=== PATIENT | female | born 1945 | race Caucasian/White ===

== ENCOUNTER → 2017-02-11 | Outpatient (CLI) | payer BC ==
[~2017-02-11] MED LIST: ESTCR PV; GLC500 PO; LOVA10TA2 PO; MULT-506 PO; [UNRECOGNIZED DRUG - OTHER] TD
--- NOTE | 2017-02-11 12:46 | MAMMOGRAPHY REPORT ---
BILATERAL DIGITAL SCREENING MAMMOGRAM WITH CAD: 02/11/2017 CLINICAL HISTORY: Routine screening. TECHNIQUE: Bilateral CC and MLO views were obtained. The repeat right CC view was obtained with the nipple in profile. Current study was also evaluated with a Computer Aided Detection (CAD) system. COMPARISON: Comparison is made to exams dated: 02/02/2016 mammogram, 01/26/2014 mammogram, 01/31/2015 m ammogram, 01/20/2013 mammogram, 01/20/2012 mammogram, and 01/16/2011 mammogram - [facility] enter. BREAST COMPOSITION: There are scattered areas of fibroglandular density in both breasts. FINDINGS: There is a stable circumscribed round 5 mm mass in the lower outer right breast. Stable in tramammary lymph nodes near each axillary tail. There are scattered round microcalcifications and mi ld vascular calcification in the breasts. No new suspicious mass, architectural distortion or cluste r of microcalcifications is seen. IMPRESSION: ACR BI-RADS CATEGORY 1: NEGATIVE There is no mammographic evidence of malignancy. A 1 year screening mammogram is recommended. The pa tient will receive written notification of the results. Approximately 10% of breast cancers are not detected with mammography. A negative mammographic report should not delay biopsy if a clinically suggestive mass is present. Monet Sabillon M.D. ay/:02/11/2017 08:09:55 Facing Baster: Bianca SHEN(Daphne)(Harriett), [facility] letter sent: Normal 1/2 BI-RADS Code: ACR BI-RADS Category 1: Negative
== END | disposition home or self-care (01) ==
LOC: C.MAMM 07:37
PROVIDERS: ATTEND Obstetrics & Gynecology
DX: Z12.31 Encounter for screening mammogram for malignant neoplasm of breast (principal)

== ENCOUNTER → 2017-06-06 | Outpatient (CLI) | payer BC | END | disposition home or self-care (01) | LOC: C.PAPS 11:58 | PROVIDERS: ATTEND Obstetrics & Gynecology | DX: Z12.4 Encounter for screening for malignant neoplasm of cervix (principal); Z78.0 Asymptomatic menopausal state ==

== ENCOUNTER 2020-02-17 08:54 | Inpatient (IN) ==
[2020-02-11 11:43] LABS: Basophils # (auto) 0.06 K/uL (0-0.2); Basophils % (auto) 0.9 %; Eosinophils # (auto) 0.22 K/uL (0-0.5); Eosinophils % (auto) 3.2 %; Hematocrit (blood only) 42.6 % (37-47); Hemoglobin 14.6 g/dL (12.0-16.0); Immature Granulocytes # (auto) 0.01 K/uL (0.00-0.02); Immature Granulocytes % (auto) 0.1 %; Lymphocytes # (auto) 2.05 K/uL (1.2-3.4); Lymphocytes % (auto) 30.1 %; Mean Corpuscular Hemoglobin 32.2 pg (25-34); Mean Corpuscular Hgb Conc 34.3 g/dL (32-36); Mean Corpuscular Volume 93.8 fL (80-100); Mean Platelet Volume 9.3 fL (7.4-10.4); Monocytes # (auto) 0.51 K/uL (0.11-0.59); Monocytes % (auto) 7.5 %; Neutrophils # (auto) 3.97 K/uL (1.4-6.5); Neutrophils % (auto) 58.2 %; Platelet Count 273 K/uL (130-400); RDW Coefficient of Variation 12.8 % (11.5-14.5); RDW Standard Deviation 43.9 fL (36.4-46.3); Red Blood Count 4.54 M/uL (4.2-5.4); White Blood Count 6.82 K/uL (4.8-10.8)
[2020-02-11 11:51] LABS: Partial Thromboplastin Time 28.8 Seconds (21.0-31.0); Prothrombin Time 10.1 Seconds (9.0-12.0)
[2020-02-11 12:04] LABS: BUN Creatinine Ratio 24.7 (10-20); Blood Urea Nitrogen 20 mg/dl (7-18); Calcium 9.2 mg/dl (8.5-10.1); Carbon Dioxide 24 mmol/L (21-32); Chloride 108 mmol/L (98-107); Est GFR (African American) 84.1; Est GFR (Non-African American) 72.6; Glucose 100 mg/dl (70-99); Potassium 4.1 mmol/L (3.5-5.1); Sodium 139 mmol/L (136-145)
[2020-02-11 12:31] LABS: Estimated Average Glucose 108 mg/dl; Hemoglobin A1C 5.4 % (4.5-5.6)
[2020-02-11 14:37] LABS: Appearance Urine Clear (Clear); Bacteria Urine Automated Negative (Negative); Bilirubin Urine Negative (Negative); Blood Urine Negative (Negative); Color Urine Yellow; Epithelial Cell Urine Auto >30 /lpf (0-5); Glucose Urine UA Negative (Negative); Ketones Urine Negative (Negative); Leukocyte Esterase Urine Trace (Negative); Nitrite Urine Negative (Negative); Protein Urine Negative (Negative); Specific Gravity Urine 1.015 (1.000-1.030); Urobilinogen Urine Negative (Negative); pH Urine 5.5 (4.5-7.5)
--- NOTE | 2020-02-14 13:06 | History & Physical Report ---
Date of Service February 14, 2020 Assessment & Plan (1) Primary osteoarthritis, left shoulder: Treatment options discussed. She has failed conservative measures as above. Risks, benefits and alternatives to surgery including but not limited to infection, DVT, pain, stiffness, need for revision surgery, damage to blood vessels, damage to nerves, PE, , were discussed with the patient and they wish to proceed. Plan will be for left total shoulder arthroplasty. Will plan on resuming her daily aspirin post operatively. Will plan on HHPT upon discharge from the hospital. Current COVID status is unknown, preoperative COVID testing results are currently pending. History of Present Illness Chief Complaint: Left shoulder pain Primary Care Provider: Chelsey Camacho PA-C Patient is a 74 year old female with PMHx significant for HTN and high cholesterol who has long standing history of left shoulder pain. Pain is affecting her abilities to carry out her normal daily activities. She has failed conservative therapy including cortisone injections and antiinflammatories. She would like to proceed with left shoulder replacement. Patient denies headaches, sweats, fevers, chills, double vision, blurred vision, cough, sore throat, dysphagia, chest pain, sob, wheezing, n/v/d/c, numbness, tingling, fatigue, urinary symptoms, mood disorders. ROS positive for left shoulder pain and stiffness. Allergies Allergy/AdvReac Type Severity Reaction Status Date / Time Penicillins Allergy Intermediate HIVES Verified 02/09/20 14:43 pravastatin Allergy Mild LEG PAIN Verified 02/09/20 14:43 simvastatin Allergy Mild LEG PAIN Verified 02/09/20 14:43 atorvastatin AdvReac Mild LEG PAIN Verified 02/09/20 14:43 capsaicin AdvReac Mild GI SYMPTOMS Verified 02/09/20 14:43 diclofenac AdvReac Mild GI SYMPTOMS Verified 02/09/20 14:43 Diclopak AdvReac Mild GI SYMPTOMS Verified 03/04/13 11:16 Home Medications Home Medications Medication Instructions Recorded Confirmed Type aspirin 81 mg tablet,delayed 81 mg PO QAM tab 06/16/19 02/09/20 History release estradiol 10 mcg vaginal tablet 10 mcg PV .twice weekly #24 tab 09/10/19 02/09/20 Rx lisinopril 5 mg tablet 5 mg PO HS 09/10/19 02/09/20 History B-complex with vitamin C [Super B 1 tab PO QAM 11/29/19 02/09/20 History Complex-Vitamin C] cholecalciferol (vitamin D3) 25 mcg PO QAM 11/29/19 02/09/20 History [Vitamin D3] diphenhydramine HCl [Benadryl] 50 mg PO HS PRN 11/29/19 02/09/20 History famotidine 40 mg PO QPM 11/29/19 02/09/20 History flaxseed oil 1,000 mg PO QAM 11/29/19 02/09/20 History fluticasone furoate [Flonase 1 spray INTRANASAL DAILY PRN 11/29/19 02/09/20 History Sensimist] naproxen sodium 220 mg PO BID 11/29/19 02/09/20 History Past Med/Surg History Social History Preferred Language: Faroese Communication Ability: Effective Account Information Clerk Required: No Beliefs That Will Affect Care: None Current Living Situation: Alone Feels Safe at Home: Yes Smoking Status: Never smoker Second Hand Exposure: Yes ( A CHILD) ; Hx Alcohol Use: Yes Alcohol type: wine and hard liquor Hx Substance Use: No Review of Systems All systems reviewed & are unremarkable except as noted in HPI & below Physical Exam Constitutional: well developed and well nourished; no acute distress Eyes: PERRL, conjunctivae normal, anicteric sclerae ENMT: external ear and nose normal, oropharynx normal Neck: trachea midline, no thyromegaly Respiratory: normal respiratory effort, lungs clear to auscultation Cardiovascular: RRR, no murmur, no edema Musculoskeletal: Left shoulder: Active forward flexion 0 to 90 degrees abduction 0 to 70 degrees external rotation is to neutral Skin: no rashes, warm and dry Neurologic: patellar DTR's 2+ bilat, sensation intact Psychiatric: A+Ox3, euthymic affect Results & Data Diagnostic Findings Left shoulder radiographs: X-RAY Shoulder 2 Or More Views LT [id number] in the glenohumeral joint. Fairly sizable inferior humeral head osteophyte mild posterior wear of the glenoid
--- NOTE | 2020-02-14 14:18 | Anesthesiology Consultation ---
Date of Service February 14, 2020 Assessment & Plan (1) Encounter for pre-operative examination: COVID Status: As of 02/08 nurse assessment, patient denies travel to endemic area, known exposure/sick contacts, symptoms, or testing for coronavirus. Chart Review Chart Review: Acceptable Risk for Surgery (pending surgeon-ordered PCP clearance 02/15) and Patient NOT seen in Pre Admission Testing History Surgery Operation Date: 02/17/20 08:45 Proposed Procedures p Left Total Shoulder Arthroplasty - Jimmie Crow MD Height/Weight Height: 5 ft 1 in Weight: 87.997 kg Allergies Allergy/AdvReac Type Severity Reaction Status Date / Time Penicillins Allergy Intermediate HIVES Verified 02/09/20 14:43 pravastatin Allergy Mild LEG PAIN Verified 02/09/20 14:43 simvastatin Allergy Mild LEG PAIN Verified 02/09/20 14:43 atorvastatin AdvReac Mild LEG PAIN Verified 02/09/20 14:43 capsaicin AdvReac Mild GI SYMPTOMS Verified 02/09/20 14:43 diclofenac AdvReac Mild GI SYMPTOMS Verified 02/09/20 14:43 Diclopak AdvReac Mild GI SYMPTOMS Verified 03/04/13 11:16 Medications Home Medications Medication Instructions Recorded Confirmed Last Taken aspirin 81 mg tablet,delayed 81 mg PO QAM tab 06/16/19 02/09/20 Unknown release estradiol 10 mcg vaginal tablet 10 mcg PV .twice weekly #24 tab 09/10/19 0 Unknown lisinopril 5 mg tablet 5 mg PO HS 09/10/19 02/09/20 Unknown B-complex with vitamin C [Super B 1 tab PO QAM 11/29/19 02/09/20 Unknown Complex-Vitamin C] cholecalciferol (vitamin D3) 25 mcg PO QAM 11/29/19 02/09/20 Unknown [Vitamin D3] diphenhydramine HCl [Benadryl] 50 mg PO HS PRN 11/29/19 02/09/20 Unknown famotidine 40 mg PO QPM 11/29/19 02/09/20 Unknown flaxseed oil 1,000 mg PO QAM 11/29/19 02/09/20 Unknown fluticasone furoate [Flonase 1 spray INTRANASAL DAILY PRN 11/29/19 02/09/20 Unknown Sensimist] naproxen sodium 220 mg PO BID 11/29/19 02/09/20 Unknown Past Medical History Medical History GERD (gastroesophageal reflux disease) "SILENT" Hyperlipidemia "CONTROLLED" Hypertension Osteoarthritis Prediabetes Past Family History Family History Sister Family history of diabetes mellitus Past Surgical History Surgical History History of bilateral tubal ligation History of section X 1 History of colonoscopy History of dilatation and curettage History of esophagogastroduodenoscopy (EGD) History of tonsillectomy and adenoidectomy History of tooth extraction Macular hole LEFT EYE INJECTION Nausea and vomiting after administration of anesthetic agent Rectocele REPAIRED Social History Smoking Status: Never smoker Do You Dip or Chew Tobacco: No Hx Alcohol Use: Yes Alcohol type: wine and hard liquor alcohol intake frequency: a few times a week Hx Substance Use: No substance use type: does not use Testing Laboratory Results 02/11/20 10:59 02/11/20 10:59 PT 10.1 Seconds (9.0-12.0) 02/11/20 10:59 INR 1.0 (0.9-1.1) 02/11/20 10:59 APTT 28.8 Seconds (21.0-31.0) 02/11/20 10:59 Hemoglobin A1c 5.4 % (4.5-5.6) 02/11/20 10:59 Urine Color Yellow 02/11/20 12:00 Urine Appearance Clear (Clear) 02/11/20 12:00 Urine pH 5.5 (4.5-7.5) 02/11/20 12:00 Ur Specific [place] 1.015 (1.000-1.030) 02/11/20 12:00 Urine Protein Negative (Negative) 02/11/20 12:00 Urine Glucose (UA) Negative (Negative) 02/11/20 12:00 Urine Ketones Negative (Negative) 02/11/20 12:00 Urine Nitrite Negative (Negative) 02/11/20 12:00 Ur Leukocyte Esterase Trace (Negative) H 02/11/20 12:00 Urine WBC (Auto) 1-5 /hpf (0-5) 02/11/20 12:00 Urine RBC (Auto) 5-10 /hpf (0-4) H 02/11/20 12:00 U Hyaline Cast (Auto) 1-5 /lpf (0-5) 02/11/20 12:00 U Epithel Cells (Auto) >30 /lpf (0-5) H 02/11/20 12:00 Urine Bacteria (Auto) Negative (Negative) 02/11/20 12:00 Electrocardiogram Date: 02/11/20 Findings: + NSR @ (96bpm) Cannot r/o anterior infarct, age undetermined. No significant change from EKG from 08/18/97. Chest X-Ray Date: 02/11/20 Findings: + NAD
[~2020-02-17 08:54] MED LIST changes: +ACETAMINOPHEN 500 MG TAB PO SCH; +CLINDAMYCIN 600 MG/54 ML BAG IV SCH; +CeleBREX 200 MG CAP PO SCH; -ESTCR PV; +FAMOTIDINE 20 MG TAB PO SCH; +GABAPENTIN 300 MG CAP PO SCH; -GLC500 PO; -LOVA10TA2 PO; +LR 15ML/HR IV SCH; +METOCLOPRAMIDE HCL 10 MG TABLET PO SCH; -MULT-506 PO; +TRANEXAMIC ACID 1,000 MG **IV Intra-op IV SCH; +TRANEXAMIC ACID 1,000 MG **IV Pre-op IV SCH; -[UNRECOGNIZED DRUG - OTHER] TD; +dexAMETHasone 4 MG TAB PO SCH
--- NOTE | 2020-02-17 09:34 | History & Physical Bridge Note ---
Date of Service February 17, 2020 History & Physical Bridge Note I have examined the patient, reviewed the History & Physical and in the interval since the performance of the History & Physical I have noted the following changes of clinical significance: no changes noted
[2020-02-17] MEDS ORDERED: ROPIVACAINE 0.5% 5 MG/ML 30 ML VIAL ONE (09:36)
[2020-02-17] MEDS ORDERED: dexAMETHasone 4 MG TAB PO ONE (10:04)
[2020-02-17] MEDS ORDERED: CeleBREX 200 MG CAP ONE (10:04)
[2020-02-17] MEDS ORDERED: METOCLOPRAMIDE HCL 10 MG TABLET ONE (10:05)
[2020-02-17] MEDS ORDERED: ACETAMINOPHEN 500 MG TAB ONE (10:05)
[2020-02-17] MEDS ORDERED: TRANEXAMIC ACID / 0.7% NACL 1000MG/100ML BAG IV ONE (10:05)
[2020-02-17] MEDS ORDERED: GABAPENTIN 300 MG CAP ONE (10:05)
[2020-02-17] MEDS ORDERED: FAMOTIDINE 20 MG TAB ONE (10:05)
[2020-02-17] MEDS ORDERED: CLINDAMYCIN 600 MG/54 ML D5W IV ONE (10:06)
[2020-02-17] MEDS ORDERED: ROPIVACAINE 0.5% HCL/PF 150 MG, BUPIVACAINE 0.5% MPF 30 ML, EPINEPHrine 30MG/30ML (OR U... INFIL SCH (10:15)
[2020-02-17] MEDS ORDERED: VANCOMYCIN HCL 1000MG/20ML VIAL ONE (10:17)
[2020-02-17] MEDS ORDERED: BACITRACIN INJ 50,000 UNIT VIAL ONE (10:18)
[2020-02-17] MEDS ORDERED: THROMBIN FOR SOLN 20000 UNIT KIT ONE (10:18)
[2020-02-17] MEDS ORDERED: SCOPOLAMINE 1.5 MG TDSY TD ONE ×2 (10:30→10:32)
[2020-02-17] MEDS ORDERED: ATROPINE SULFATE 0.1 MG/ML 10ML SYR IV PRN (10:33)
[2020-02-17] MEDS ORDERED: fentaNYL citrate 100 MCG/2 ML VIAL IV PRN (10:33)
[2020-02-17] MEDS ORDERED: ePHEDrine sulfate 50 MG/ML AMP IV PRN (10:33)
[2020-02-17] MEDS ORDERED: ONDANSETRON INJ 2 MG/ML 2 ML VIAL IV PRN ×2 (10:33→15:31)
[2020-02-17] MEDS ORDERED: PROPOFOL IV EMULSION 10 MG/ML 20 ML VIAL IV ONE (11:00)
[2020-02-17] MEDS ORDERED: MIDAZOLAM HCL 1 MG/ML 2ML VIAL ONE (11:00)
[2020-02-17] MEDS ORDERED: LIDOCAINE HCL 2% 2 ML VIAL/AMP(20MG/ML) INFIL ONE (11:00)
[2020-02-17] MEDS ORDERED: ONDANSETRON INJ 2 MG/ML 2 ML VIAL ONE (12:59)
[2020-02-17] MEDS ORDERED: DEXAMETHASONE SOD INJ 4 MG/ML VIAL ONE (12:59)
[2020-02-17] MEDS ORDERED: ROCURONIUM BROMIDE 10 MG/ML 5 ML VIAL IV ONE (12:59)
[2020-02-17] MEDS ORDERED: ePHEDrine sulfate 50 MG/ML AMP ONE (13:24)
[2020-02-17] MEDS ORDERED: PHENYLEPHRINE HCL 10 MG/ML VIAL ONE (13:24)
[2020-02-17] MEDS ORDERED: GLYCOPYRROLATE 0.2 MG/ML VIAL ONE (13:36)
[2020-02-17] MEDS ORDERED: NEOSTIGMINE METHYLSULFATE 5 MG/5 ML SYR ONE (13:36)
--- NOTE | 2020-02-17 13:40 | Operative Report ---
Post Operative Report Pre & Post Diagnosis Operation Date: 02/17/20 11:00 <No data on this case meets the specified criteria> Procedure Operation Date: 02/17/20 11:00 <No data on this case meets the specified criteria> Surgeon Jimmie Crow MD I attest to the content of the Intraoperative Record and any orders documented therein. Any exceptions are noted below.
--- NOTE | 2020-02-17 13:45 | Operative Report ---
Post Operative Report Pre & Post Diagnosis Operation Date: 02/17/20 11:00 Pre-Op Diagnosis: LEFT SHOULDER OSTEOARTHRITIS Post-Op Diagnosis: LEFT SHOULDER OSTEOARTHRITIS, ROTATOR CUFF TEAR, LONG HEAD BICEPS TEAR I identified the patient and participated in the time-out.: Yes Procedure Operation Date: 02/17/20 11:00 Actual Procedures p Left Reverse Total Shoulder Arthroplasty, Biceps Tenodesis(Left) - Jimmie Crow MD Surgeon Jimmie Crow MD Wine [employer]ir[employer] Clerk Maciej Hare PA-C Estimated Blood Loss 50 Findings Consistent with Post-Op Diagnosis Specimens Bone and tissue Drains 1 Hemovac Anesthesia Type General Regional Complications none Disposition Accompanied Patient To Recovery: No Disposition: Recovery Room Indications The patient is a 74-year-old female longstanding arthritic change in left shoulder. She has failed conservative measures including injection, anti- inflammatories, rehab. She wishes to proceed with left total shoulder arthropl asty. Description of Procedure Risks, benefits and alternatives to surgery including, but not limited to, infection DVT, pain, stiffness, need for revision surgery, failure to relieve all symptoms, damage to blood vessels, damage to nerves, risk of anesthesia were discussed with the patient and they wished to proceed. The patient was identified. Laterality was confirmed and marked. The patient received a preoperative antibiotic as well as an interscalene block. They were transferred to the operating room and placed in the supine position and induced into general endotracheal anesthesia per the anesthesia staff. The patient was then safely transferred to a slight beachchair position. The patient was secured in the Tenet positioner. All pressure points were well padded. The shoulder was prepped and draped in the usual sterile manner with ChloraPrep. The arm was secured in the Spider aguirre. I made a longitudinal incision just lateral to the coracoid, sharply incising through the skin and utilizing Bovie electrocautery to achieve hemostasis. I identified the cephalic vein and mobilized it laterally with the deltoid. I mobilize the pectoralis and mobilize this medially releasing a small portion of the upper border of the pec tendon to improve visualization. I then identified and mobilized the conjoined tendon. I identified the long head of the biceps tendon. The long head of the biceps tendon had significant tendinosis and tearing proximally. I performed an in situ biceps tenodesis with interrupted #2 FiberWire suture. I then released the subscapularis. I inspected her rotator cuff. She had a full-thickness retracted irreparable supraspinatus tear. The infraspinatus looked thin as well. There was suspicion based on her preoperative imaging that she may develop the rotator cuff tear as she had some humeral head elevation but it was not excessively elevated. But given the status of her rotator cuff I e lected to proceed with a reverse total shoulder arthroplasty. I pinned into place my humeral head version cutting guide and made my humeral head resection. I then sequentially reamed and sequentially broached. The bone of the humerus was very soft. I then placed the trial humeral stem into the shoulder. I placed retractors around the glenoid and then excised the residual biceps tendon stump and glenoid labrum. I elevated the soft tissues and the inferior aspect of the glenoid to improve exposure and released tissues circumferentially. There were a large number of loose bodies that were excised. She also has significant eccentric posterior wear and I elected to place a posterior augmented glenoid component. I then positioned and drilled for the central post for the glenoid plate. The glenoid plate was bone grafted with bone taken during the procedure. I impacted the definitive glenoid plate into position and then placed a total of 4 compression screws that were then locked into position with locking caps. I then placed the glenosphere onto the plate and secured it with a locking screw. I then removed the trial humeral stem and placed the definitive humeral stem. I trialed off of the definitive stem. The definitive components used were [employer] Equinox: Preserve short humeral press-fit stem: 8 8 degree posterior augment left glenoid plate Glenosphere: 38 Humeral tray:+ 0 Humeral polyethylene liner: + 0 I thoroughly irrigated the wound. Deep tissues were anesthetized with an orthomix solution. I then locked my definitive humeral tray into position with a torque limiting screw. I then impacted the definitive humeral polyethylene liner into position. I then reduced the shoulder. There was good range of motion and good stability after the reduction. The wound was again thoroughly irrigated and a Betadine soak was performed. A deep drain was placed. The deltopectoral interval was closed with interrupted #1 Ethibond suture. The subcutaneous tissue was closed with interrupted 2-0 Vicryl suture. The skin was closed with reynold. A sterile dressing was applied. A sling was placed. All needle and sponge counts were correct at the end of the procedure. The patient was transferred to the PACU in stable condition without apparent complication. The PA-C was necessary for assistance with procedure for assistance in positioning, prepping, draping, retraction and closure. I attest to the content of the Intraoperative Record and any orders documented therein. Any exceptions are noted below.
[2020-02-17] MEDS ORDERED: fentaNYL citrate 100 MCG/2 ML VIAL ONE (13:58)
--- NOTE | 2020-02-17 14:45 | Anesthesiology Progress Note ---
Date of Service February 17, 2020 Anesthesia Post Procedure Vital Signs Vital Signs: Temp Pulse Pulse Resp BP Pulse Ox 02/17/20 14:40 95 H 14 139/78 94 02/17/20 14:30 99 H 18 132/94 97 02/17/20 14:20 104 H 18 148/91 H 97 02/17/20 14:10 97.2 F L 99 H 14 135/100 95 02/17/20 09:20 99.0 F 96 H 18 125/84 94 Pain Intensity Left Shoulder: Pain Intensity: 2 Transfer of Care Handoff Completed per policy Notes Mental Status: alert / awake / arousable and participated in evaluation Patient Amnestic to Procedure: Yes Nausea / Vomiting: adequately controlled Pain: adequately controlled Airway Patency, RR, SpO2: stable & adequate BP & HR: stable & adequate Hydration State: stable & adequate Anesthetic Complications: no major complications apparent and Pt Satisfied with anesthetic care
--- NOTE | 2020-02-17 14:47 | XRay Report ---
XR shoulder LT min 2V routine CLINICAL HISTORY: Post shoulder surgery COMPARISON: None FINDINGS: Alignment of the reverse total left shoulder arthroplasty is anatomic. There is no peripro sthetic fracture or unexpected radiopaque foreign body. There are skin reynold and drains. IMPRESSION: Expected findings following total left shoulder arthroplasty. ACT 112: Negative or not required by law. Electronically signed by: Gabriel Rodriges M.D. 02/17/2020 2:46 PM
[2020-02-17] MEDS ORDERED: MAGNESIUM HYDROXIDE SUSP 30 ML UDC PO PRN (15:31)
[2020-02-17] MEDS ORDERED: METOCLOPRAMIDE HCL INJ 5 MG/ML 2 ML VIAL IV PRN (15:31)
[2020-02-17] MEDS ORDERED: HYDROmorphone INJ 0.5 MG/0.5 ML SYR IV PRN (15:31)
[2020-02-17] MEDS ORDERED: bisacodyL 10 MG SUPP PR PRN (15:31)
[2020-02-17] MEDS ORDERED: FLUTICASONE PROPIONATE NA SPR 16 GM BTL PRN (15:31)
[2020-02-17] MEDS ORDERED: CEFAZOLIN 2000MG 2,000 MG/15 ML SYR IV SCH (15:31)
[2020-02-17] MEDS ORDERED: NALOXONE HCL 0.4 MG/1 ML VIAL/CARP IV PRN (15:31)
[2020-02-17] MEDS: SODIUM CHLORIDE 0.9% 1000ML 1,000 ML IV SCH (15:53)
[2020-02-17] MEDS: CHECK SCOPOLAMINE PATCH PLACEMENT SCH ×2 (16:37→23:30)
[2020-02-17] MEDS: MISSING PHYSICIAN SIGNATURE ON ORDER SCH ×2 (17:18→17:19)
[2020-02-17] MEDS: CeleBREX 200 MG CAP PO SCH (20:40)
[2020-02-17] MEDS: DOCUSATE SODIUM 100 MG CAP PO SCH (20:40)
[2020-02-17] MEDS ORDERED: FAMOTIDINE 40 MG TABLET PO SCH (21:00)
[2020-02-17] MEDS ORDERED: SENNA 8.6 MG TAB PO SCH (21:00)
[2020-02-17] MEDS ORDERED: lisinopriL 5 MG TAB PO SCH (21:00)
[2020-02-17] MEDS ORDERED: VANCOMYCIN HCL 1,250 MG in SODIUM CHLORIDE 0.9% 250 ML IV ONE (22:00)
[2020-02-17] MEDS: ACETAMINOPHEN 500 MG TAB PO SCH (22:01)
[2020-02-17] MEDS: [UNRECOGNIZED DRUG - OTHER] SCH (23:30)
[2020-02-18] MEDS: SODIUM CHLORIDE 0.9% 1000ML 1,000 ML IV SCH (02:03)
[2020-02-18] MEDS: OXYCODONE HCL IR 5 MG TAB (IMMEDIATE RELEASE) PO PRN ×2 (02:03→11:53)
[2020-02-18] MEDS: ACETAMINOPHEN 500 MG TAB PO SCH (05:12)
[2020-02-18 06:15] LABS: Basophils # (auto) 0.01 K/uL (0-0.2); Basophils % (auto) 0.1 %; Hematocrit (blood only) 34.1 % (37-47); Hemoglobin 11.7 g/dL (12.0-16.0); Immature Granulocytes # (auto) 0.03 K/uL (0.00-0.02); Immature Granulocytes % (auto) 0.2 %; Lymphocytes # (auto) 1.26 K/uL (1.2-3.4); Lymphocytes % (auto) 10.1 %; Mean Corpuscular Hemoglobin 32.7 pg (25-34); Mean Corpuscular Hgb Conc 34.3 g/dL (32-36); Mean Corpuscular Volume 95.3 fL (80-100); Mean Platelet Volume 9.3 fL (7.4-10.4); Monocytes # (auto) 0.86 K/uL (0.11-0.59); Monocytes % (auto) 6.9 %; Neutrophils # (auto) 10.33 K/uL (1.4-6.5); Neutrophils % (auto) 82.7 %; Platelet Count 232 K/uL (130-400); RDW Coefficient of Variation 12.9 % (11.5-14.5); RDW Standard Deviation 44.7 fL (36.4-46.3); Red Blood Count 3.58 M/uL (4.2-5.4); White Blood Count 12.49 K/uL (4.8-10.8)
[2020-02-18 06:54] LABS: BUN Creatinine Ratio 17.8 (10-20); Calcium 8.8 mg/dl (8.5-10.1); Creatinine Clr Calc Pharmacy 67.3 ml/min; Est GFR (African American) 89.4; Est GFR (Non-African American) 77.1; Potassium 4.2 mmol/L (3.5-5.1)
--- NOTE | 2020-02-18 07:20 | Orthopedic Progress Note ---
Date of Service February 18, 2020 Assessment & Plan (1) Primary osteoarthritis, left shoulder: POD#1 left shoulder reverse TSA -PT/OT-no active shoulder motion -pain management -DVT prophylaxis-SCDs, ASA 81mg daily -AM labs-hemoglobin 11.7 from 14 at baseline, acute blood loss anemia likely due to surgical loss vs dilutional effect. -D/C planning-home with HHPT likely later today after PT. Admission and Anticipated Discharge Date Admission Date: February 17, 2020 Subjective Patient is resting in bed comfortable. Block starting to wear off, pain controlled. No complaints. denies chest pain, sob, dizziness, light headedness Review of Systems Review of Systems: All systems reviewed & are unremarkable except as noted in HPI & below Physical Exam Physical Exam: Dressing to left shoulder is c/d/i, sling in place. Hemovac suctioning. 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 Distally sensation and n/v status are intact. Constitutional: well developed and well nourished; no acute distress Results & Data ([facility]) Vital Signs (Past 12 Hours) Vital Signs Temp Pulse Pulse Resp BP Pulse Ox 02/18/20 05:12 80 94/60 L 02/18/20 03:25 36.6 C 66 14 85/52 L 97 02/17/20 23:51 36.6 C 73 14 95/58 L 94 Laboratory Results H & H 02/11/20 02/18/20 Range/Units 10:59 05:39 Hgb 14.6 11.7 L (12.0-16.0) g/dL Hct 42.6 34.1 L (37-47) % Coagulation 02/11/20 Range/Units 10:59 INR 1.0 (0.9-1.1)
[2020-02-18] MEDS ORDERED: MULTIVITAMIN TAB PO SCH (09:00)
[2020-02-18] MEDS ORDERED: CHOLECALCIFEROL 1,000 UNITS 25 MCG TAB PO SCH (09:00)
[2020-02-18] MEDS ORDERED: ASPIRIN 81 MG ECTAB PO SCH (09:00)
[2020-02-18] MEDS ORDERED: VITAMIN B COMPLEX TAB PO SCH (09:00)
[2020-02-18] MEDS: [UNRECOGNIZED DRUG - OTHER] SCH (09:08)
[2020-02-18] MEDS: DOCUSATE SODIUM 100 MG CAP PO SCH (09:09)
[2020-02-18] MEDS: CeleBREX 200 MG CAP PO SCH (09:09)
--- NOTE | 2020-02-19 15:26 | Discharge Summary ---
Date of Service February 19, 2020 Admission HPI Per Admitting Provider Patient is a 74 year old female with PMHx significant for HTN and high cholesterol who has long standing history of left shoulder pain. Pain is affecting her abilities to carry out her normal daily activities. She has failed conservative therapy including cortisone injections and antiinflammatories. She would like to proceed with left shoulder replacement. Patient denies headaches, sweats, fevers, chills, double vision, blurred vision, cough, sore throat, dysphagia, chest pain, sob, wheezing, n/v/d/c, numbness, tingling, fatigue, urinary symptoms, mood disorders. ROS positive for left shoulder pain and stiffness. Admission Exam Per Admitting Provider Constitutional: well developed and well nourished; no acute distress Eyes: PERRL, conjunctivae normal, anicteric sclerae ENMT: external ear and nose normal, oropharynx normal Neck: trachea midline, no thyromegaly Respiratory: normal respiratory effort, lungs clear to auscultation Cardiovascular: RRR, no murmur, no edema Musculoskeletal: Left shoulder: Active forward flexion 0 to 90 degrees abduction 0 to 70 degrees external rotation is to neutral Skin: no rashes, warm and dry Neurologic: patellar DTR's 2+ bilat, sensation intact Psychiatric: A+Ox3, euthymic affect Principal Diagnosis Left shoulder osteoarthritis, rotator cuff tear Discharge Exam Constitutional well developed and well nourished; no acute distress Eyes PERRL, conjunctivae normal, anicteric sclerae ENMT external ear and nose normal, oropharynx normal Neck trachea midline, no thyromegaly Respiratory normal respiratory effort, lungs clear to auscultation Cardiovascular RRR, no murmur, no edema Skin no rashes, warm and dry Neurologic patellar DTR's 2+ bilat, sensation intact Psychiatric A+Ox3, euthymic affect Discharge Data Allergies Allergy/AdvReac Type Severity Reaction Status Date / Time Penicillins Allergy Intermediate HIVES Verified 02/17/20 09:34 pravastatin Allergy Mild LEG PAIN Verified 02/17/20 09:34 simvastatin Allergy Mild LEG PAIN Verified 02/17/20 09:34 atorvastatin AdvReac Mild LEG PAIN Verified 02/17/20 09:34 capsaicin AdvReac Mild GI SYMPTOMS Verified 02/17/20 09:34 diclofenac AdvReac Mild GI SYMPTOMS Verified 02/17/20 09:34 Diclopak AdvReac Mild GI SYMPTOMS Verified 03/04/13 11:16 Consultations 02/17/20 15:31 Consult Case Management - Discharge Planning Routine Procedures Performed Operation Date: 02/17/20 11:00 Actual Procedures p Left Reverse Total Shoulder Arthroplasty, Biceps Tenodesis(Left) - Jimmie Crow MD Ordered Studies 02/17/20 05:00 US - OR guided needle placemen Routine Hospital Course (1) Primary osteoarthritis, left shoulder: Patient presented for same day admission following left reverse total shoulder arthroplasty on 02/17/20. She tolerated procedure well. The Patient had an uneventful hospital course. Post-operatively, her activity was progressed and well tolerated. They participated in PT. Labs remained stable- lowest hemoglobin recorded:11.7. Pain controlled on oral medications. Please refer to daily progre ss notes and PT notes for complete details. After exam on 02/18/20, patient was felt to be stable for discharge home with home health PT. Patient will f/u in the office in about 2 weeks for further evaluation including x-rays and incision check, sooner if having any issues or concerns. POD#1 left shoulder reverse TSA -PT/OT-no active shoulder motion -pain management -DVT prophylaxis-SCDs, ASA 81mg daily -AM labs-hemoglobin 11.7 from 14 at baseline, acute blood loss anemia likely due to surgical loss vs dilutional effect. -D/C planning-home with HHPT likely later today after PT. Lab Results 02/11/20 02/11/20 02/11/20 Range/Units 10:59 10:59 10:59 WBC 6.82 (4.8-10.8) K/uL RBC 4.54 (4.2-5.4) M/uL Hgb 14.6 (12.0-16.0) g/dL Hct 42.6 (37-47) % MCV 93.8 (80-100) fL MCH 32.2 (25-34) pg MCHC 34.3 (32-36) g/dL RDW Std Deviation 43.9 (36.4-46.3) fL RDW Coeff of Coral 12.8 (11.5-14.5) % Plt Count 273 (130-400) K/uL MPV 9.3 (7.4-10.4) fL Immature Gran % (Auto) 0.1 % Neut % (Auto) 58.2 % Lymph % (Auto) 30.1 % [place] % (Auto) 7.5 % Eos % (Auto) 3.2 % Baso % (Auto) 0.9 % Immature Gran # (Auto) 0.01 (0.00-0.02) K/uL Neut # (Auto) 3.97 (1.4-6.5) K/uL Lymph # (Auto) 2.05 (1.2-3.4) K/uL [place] # (Auto) 0.51 (0.11-0.59) K/uL Eos # (Auto) 0.22 (0-0.5) K/uL Baso # (Auto) 0.06 (0-0.2) K/uL PT 10.1 (9.0-12.0) Seconds INR 1.0 (0.9-1.1) APTT 28.8 (21.0-31.0) Seconds PTT Ratio 1.0 Sodium 139 (136-145) mmol/L Potassium 4.1 (3.5-5.1) mmol/L Chloride 108 H (98-107) mmol/L Carbon Dioxide 24 (21-32) mmol/L Anion Gap 7.0 (3-11) BUN 20 H (7-18) mg/dl Creatinine 0.81 (0.6-1.2) mg/dl Est Cr Clr Drug Dosing ml/min Est GFR ( Amer) 84.1 Est GFR (Non-Af Amer) 72.6 BUN/Creatinine Ratio 24.7 H (10-20) Glucose 100 H (70-99) mg/dl Estimat Average Glucose mg/dl Hemoglobin A1c (4.5-5.6) % Calcium 9.2 (8.5-10.1) mg/dl Albumin 4.0 (3.4-5.0) gm/dl Urine Color Urine Appearance (Clear) Urine pH (4.5-7.5) Ur Specific [place] (1.000-1.030) Urine Protein (Negative) Urine Glucose (UA) (Negative) Urine Ketones (Negative) Urine Blood (Negative) Urine Nitrite (Negative) Urine Bilirubin (Negative) Urine Urobilinogen (Negative) Ur Leukocyte Esterase (Negative) Urine WBC (Auto) (0-5) /hpf Urine RBC (Auto) (0-4) /hpf U Hyaline Cast (Auto) (0-5) /lpf U Epithel Cells (Auto) (0-5) /lpf Urine Bacteria (Auto) (Negative) Blood Type Antibody Screen 02/11/20 02/11/20 02/17/20 Range/Units 10:59 12:00 09:23 WBC (4.8-10.8) K/uL RBC (4.2-5.4) M/uL Hgb (12.0-16.0) g/dL Hct (37-47) % MCV (80-100) fL MCH (25-34) pg MCHC (32-36) g/dL RDW Std Deviation (36.4-46.3) fL RDW Coeff of Coral (11.5-14.5) % Plt Count (130-400) K/uL MPV (7.4-10.4) fL Immature Gran % (Auto) % Neut % (Auto) % Lymph % (Auto) % [place] % (Auto) % Eos % (Auto) % Baso % (Auto) % Immature Gran # (Auto) (0.00-0.02) K/uL Neut # (Auto) (1.4-6.5) K/uL Lymph # (Auto) (1.2-3.4) K/uL [place] # (Auto) (0.11-0.59) K/uL Eos # (Auto) (0-0.5) K/uL Baso # (Auto) (0-0.2) K/uL PT (9.0-12.0) Seconds INR (0.9-1.1) APTT (21.0-31.0) Seconds PTT Ratio Sodium (136-145) mmol/L Potassium (3.5-5.1) mmol/L Chloride (98-107) mmol/L Carbon Dioxide (21-32) mmol/L Anion Gap (3-11) BUN (7-18) mg/dl Creatinine (0.6-1.2) mg/dl Est Cr Clr Drug Dosing ml/min Est GFR ( Amer) Est GFR (Non-Af Amer) BUN/Creatinine Ratio (10-20) Glucose (70-99) mg/dl Estimat Average Glucose 108 mg/dl Hemoglobin A1c 5.4 (4.5-5.6) % Calcium (8.5-10.1) mg/dl Albumin (3.4-5.0) gm/dl Urine Color Yellow Urine Appearance Clear (Clear) Urine pH 5.5 (4.5-7.5) Ur Specific [place] 1.015 (1.000-1.030) Urine Protein Negative (Negative) Urine Glucose (UA) Negative (Negative) Urine Ketones Negative (Negative) Urine Blood Negative (Negative) Urine Nitrite Negative (Negative) Urine Bilirubin Negative (Negative) Urine Urobilinogen Negative (Negative) Ur Leukocyte Esterase Trace H (Negative) Urine WBC (Auto) 1-5 (0-5) /hpf Urine RBC (Auto) 5-10 H (0-4) /hpf U Hyaline Cast (Auto) 1-5 (0-5) /lpf U Epithel Cells (Auto) >30 H (0-5) /lpf Urine Bacteria (Auto) Negative (Negative) Blood Type O Positive Antibody Screen NEGATIVE 02/18/20 02/18/20 Range/Units 05:39 05:39 WBC 12.49 H (4.8-10.8) K/uL RBC 3.58 L (4.2-5.4) M/uL Hgb 11.7 L (12.0-16.0) g/dL Hct 34.1 L (37-47) % MCV 95.3 (80-100) fL MCH 32.7 (25-34) pg MCHC 34.3 (32-36) g/dL RDW Std Deviation 44.7 (36.4-46.3) fL RDW Coeff of Coral 12.9 (11.5-14.5) % Plt Count 232 (130-400) K/uL MPV 9.3 (7.4-10.4) fL Immature Gran % (Auto) 0.2 % Neut % (Auto) 82.7 % Lymph % (Auto) 10.1 % [place] % (Auto) 6.9 % Eos % (Auto) 0.0 % Baso % (Auto) 0.1 % Immature Gran # (Auto) 0.03 H (0.00-0.02) K/uL Neut # (Auto) 10.33 H (1.4-6.5) K/uL Lymph # (Auto) 1.26 (1.2-3.4) K/uL [place] # (Auto) 0.86 H (0.11-0.59) K/uL Eos # (Auto) 0.00 (0-0.5) K/uL Baso # (Auto) 0.01 (0-0.2) K/uL PT (9.0-12.0) Seconds INR (0.9-1.1) APTT (21.0-31.0) Seconds PTT Ratio Sodium 140 (136-145) mmol/L Potassium 4.2 (3.5-5.1) mmol/L Chloride 110 H (98-107) mmol/L Carbon Dioxide 22 (21-32) mmol/L Anion Gap 8.0 (3-11) BUN 14 (7-18) mg/dl Creatinine 0.77 (0.6-1.2) mg/dl Est Cr Clr Drug Dosing 67.3 ml/min Est GFR ( Amer) 89.4 Est GFR (Non-Af Amer) 77.1 BUN/Creatinine Ratio 17.8 (10-20) Glucose 114 H (70-99) mg/dl Estimat Average Glucose mg/dl Hemoglobin A1c (4.5-5.6) % Calcium 8.8 (8.5-10.1) mg/dl Albumin (3.4-5.0) gm/dl Urine Color Urine Appearance (Clear) Urine pH (4.5-7.5) Ur Specific [place] (1.000-1.030) Urine Protein (Negative) Urine Glucose (UA) (Negative) Urine Ketones (Negative) Urine Blood (Negative) Urine Nitrite (Negative) Urine Bilirubin (Negative) Urine Urobilinogen (Negative) Ur Leukocyte Esterase (Negative) Urine WBC (Auto) (0-5) /hpf Urine RBC (Auto) (0-4) /hpf U Hyaline Cast (Auto) (0-5) /lpf U Epithel Cells (Auto) (0-5) /lpf Urine Bacteria (Auto) (Negative) Blood Type Antibody Screen Total Time Total Time Spent Total Time Spent (In Minutes): 20 Discharge Plan Discharge Items Patient Disposition: Home - Home Health Services Reason For Visit: LEFT SHOULDER OSTEOARTHRITIS Discharge Diagnosis: Left shoulder osteoarthritis, rotator cuff tear Activity: Per Instructions section Non-emergency contact: Surgeon Call non-emergency contact if: you have any medication questions, your pain is not controlled, your pain is worsening, your pain is concerning for you, you have a fever, your temperature is above 101, your wound has increased redness, your wound has increased drainage and your wound pain has increased Follow-up/Referrals: Chelsey Camacho PA-C [Primary Care Provider] - Diet: Regular Addtl Attending Provider Instructions: ACTIVITY RECOMMENDATIONS: SELF CARE INSTRUCTIONS AFTER REVERSE TOTAL SHOULDER ARTHROPLASTY A. You may do daily exercises as taught in physical therapy while in hospital. No lifting with the operative arm. Please schedule your outpatient physical therapy appointment to begin within 2-3 days after leaving the hospital. Specific restrictions will be written on your physical therapy prescription that is provided to you. B. You are to wear your sling/immobilizer at all times EXCEPT when performing your daily exercises, participating in physical therapy and for hygiene purposes. C. You may perform dry, daily dressing changes. Please keep your incision covered. You may shower 48 hours after surgery. Do not apply soap or any ointment/lotions directly over incision. Do not soak incision in bath tub/swimming pool. D. You may use ice as needed to operative shoulder. SPECIAL CARE INSTRUCTIONS: VERY IMPORTANT TO READ AND REVIEW A. There are a few signs you need to watch for after you are home. Call [facility] at [phone] if you experience any of the followin. Increased severe shoulder pain. Some pain is expected especially when you exercise. 2. Increased swelling in you shoulder or arm; pain or swelling in either upper extremity. 3. Any fluid drainage from the incision. 4. Shortness of breath or chest pain. B. Please call [facility] at [phone] if you have any questions or concerns about your operation or recovery. C. Call your physician if: 1. Temperature is greater than 101 degrees (F). 2. Pain is not relieved by prescribed pain medications. 3. Increase drainage or redness from incision. 4. Unanswered questions or concerns. FOLLOW UP VISIT: Please call [facility] at [phone] to schedule a follow up appointment with or his PA in 12-14 days from your surgery date. Pending Studies at Discharge: No Stand-Alone Forms: My [facility] [employer], Opioid Pain Management, Smoking Cessation Medications and DC Order Prescriptions: New celecoxib [Celebrex] 200 mg Capsule 200 mg PO BID Qty: 60 RF: 0 acetaminophen 500 mg Tablet 1,000 mg PO Q8 Qty: 60 RF: 0 oxycodone 5 mg Tablet 5 - 10 mg PO .Q4H-6H MDD 6 PRN (Reason: pain) Qty: 30 RF: 0 Continued aspirin 81 mg tablet,delayed release (DR/EC) 81 mg PO QAM RF: 0 lisinopril 5 mg tablet 5 mg PO HS RF: 0 estradiol 10 mcg tablet 10 mcg PV .twice weekly Qty: 24 RF: 3 flaxseed oil 1,000 mg Capsule 1,000 mg PO QAM RF: 0 famotidine 20 mg Tablet 40 mg PO QPM RF: 0 diphenhydramine HCl [Benadryl] 25 mg Capsule 50 mg PO HS PRN (Reason: Sleep) RF: 0 B-complex with vitamin C [Super B Complex-Vitamin C] Tablet 1 tab PO QAM RF: 0 cholecalciferol (vitamin D3) [Vitamin D3] 25 mcg (1,000 unit) Tablet 25 mcg PO QAM RF: 0 Flonase Sensimist 27.5 mcg/actuation [place],Suspension 1 spray INTRANASAL DAILY PRN (Reason: Nasal Congestion) RF: 0 Discontinued naproxen sodium 220 mg Tablet 220 mg PO BID RF: 0 Discharge Orders: Discharge Order (Routine); Ordered 02/18/20 Ordered By: Maciej Blanchard/Other Patient Handouts: DVT Post Op Prevention Admission Data Admit Date/Time: 02/17/20 14:13 Attending Provider: Jimmie Crow Admit Provider: Jimmie Crow Primary Care Provider: Chelsey Camacho Other Providers: [facility],Home Healthcare Other Interventions: Discharge Summary Assessment (RN) Last Done: 02/18/20 11:28 DC Date/Time DO NOT enter until pt leaves facility: 02/18/20 12:54
== END 2020-02-18 12:54 | disposition home health service (06) | DRG 483 ==
LOC: ASU 08:54 → 3E 14:13

== ENCOUNTER 2020-08-18 16:13 | Observation (INO) ==
--- NOTE | 2020-08-18 19:07 | Emergency Department Note ---
History of Present Illness General Chief complaint: Shortness of Breath/Dyspnea Stated complaint: sob, pending covid test Time Seen by Provider: 08/18/20 18:46 Source: patient History of Present Illness Provider complaint: Shortness of breath Onset (ago): day(s) Location: chest Severity: moderate Pain Consistency: + intermittent Quality: + other (Short of breath) Relieved By: + none Associated symptoms: + chest pain, + shortness of breath and + other (Sinus con gestion); no cough, no fever/chills, no headaches and no nausea/vomiting This is a 75-year-old female presents with dyspnea. The patient states she started feeling dyspneic about 9 days ago before she went to [place] for a . When she flew to the she found out that one of her family members was positive for Covid. She did not interact with that family member but did interact with other members of that family who later found out that 2 of them were also positive for COVID-19. She cut the trip short and came back the next day. She continues to feel shortness of breath which got worse today. She feels like she cannot catch her breath. No alleviating factors. Prior to leaving on a trip she also had some sinus congestion which seems to be better. She denies fever, cough, sore throat, body aches, loss of taste or smell. She does have some mild diarrhea. She also noted that she has had intermittent chest discomfort for the past week. She had it while she was on the plane. She also had it today. She describes it as a pressure in the upper part of her chest. It does not radiate but seems to move around on her chest. She denies any history of CAD. She has had no history of PE or DVT. She denies any leg swelling or pain. She denies any current chest discomfort. Home Medications Medication Instructions Recorded Confirmed Type aspirin 81 mg tablet,delayed 81 mg PO QAM tab 06/16/19 08/18/20 History release lisinopril 5 mg tablet 5 mg PO HS 09/10/19 08/18/20 History B-complex with vitamin C [Super B 1 tab PO QAM 11/29/19 08/18/20 History Complex-Vitamin C] Flonase Sensimist 1 spray INTRANASAL DAILY PRN 11/29/19 08/18/20 History cholecalciferol (vitamin D3) 25 mcg PO QAM 11/29/19 08/18/20 History [Vitamin D3] diphenhydramine HCl [Benadryl] 50 mg PO HS PRN 11/29/19 08/18/20 History acetaminophen 1,000 mg PO Q8 #60 tab 02/18/20 08/18/20 Rx Naproxen PM 220 mg PO BID 08/18/20 08/18/20 History albuterol sulfate [ProAir HFA] 2 puff INHALATION Q4 PRN 08/18/20 08/18/20 History cimetidine 400 mg PO BID 08/18/20 08/18/20 History estradiol 10 mcg VAGINAL 2XWK 08/18/20 08/18/20 History flaxseed oil 1,000 mg PO DAILY 08/18/20 08/18/20 History hydrocortisone 1 applic TOPICAL TID PRN 08/18/20 08/18/20 History lorazepam 0.5 mg PO Q8H PRN #15 tab 08/19/20 Rx Allergies Allergy/AdvReac Type Severity Reaction Status Date / Time Penicillins Allergy Intermediate HIVES Verified 08/18/20 19:36 pravastatin Allergy Mild LEG PAIN Verified 08/18/20 19:36 simvastatin Allergy Mild LEG PAIN Verified 08/18/20 19:36 atorvastatin AdvReac Mild LEG PAIN Verified 08/18/20 19:36 capsaicin AdvReac Mild GI SYMPTOMS Verified 08/18/20 19:36 diclofenac AdvReac Mild GI SYMPTOMS Verified 08/18/20 19:36 Diclopak AdvReac Mild GI SYMPTOMS Verified 03/04/13 11:16 Past Med/Surg History Medical History (Updated 08/19/20 @ 18:02 by Osvaldo Dubois MD) GERD (gastroesophageal reflux disease) "SILENT" Hyperlipidemia "CONTROLLED" Hypertension Osteoarthritis Prediabetes Surgical History History of bilateral tubal ligation History of section X 1 History of colonoscopy History of dilatation and curettage History of esophagogastroduodenoscopy (EGD) History of tonsillectomy and adenoidectomy History of tooth extraction Macular hole LEFT EYE INJECTION Nausea and vomiting after administration of anesthetic agent Rectocele REPAIRED Family History Sister Family history of diabetes mellitus Social History Smoking Status: Never smoker Second Hand Exposure: Yes ( A CHILD); Hx Alcohol Use: Yes Alcohol type: wine and hard liquor Hx Substance Use: No Preferred Language: Cymro Communication Ability: Effective Board Stacker Required: No Beliefs That Will Affect Care: None Current Living Situation: Alone Feels Safe at Home: Yes Safety Concerns: Feels Safe At This Time Assistive Devices: Glasses Review of Systems See HPI for pertinent positives & negatives. and A total of 10 systems reviewed and were otherwise negative Physical Exam Vital Signs Vital Signs - 24 hr 08/18/20 20:03 08/18/20 20:05 08/18/20 20:30 Pulse Rate 90 88 Pulse Rate from SpO2 Sensor 93 H 88 Respiratory Rate 21 11 L Blood Pressure 160/93 H Blood Pressure Mean 116 Pulse Oximetry 95 97 98 Oxygen Delivery Method Room Air Room Air Room Air 08/18/20 21:09 08/18/20 21:30 08/18/20 22:00 Pulse Rate 109 H 92 H 87 Pulse Rate from SpO2 Sensor 106 H 91 H 87 Respiratory Rate 27 H 16 18 Blood Pressure 156/121 H 146/108 H 161/107 H Blood Pressure Mean 142 112 122 Pulse Oximetry 97 97 97 Oxygen Delivery Method Room Air Room Air Room Air 08/18/20 22:30 08/18/20 23:01 Pulse Rate 83 95 H Pulse Rate from SpO2 Sensor 83 94 H Respiratory Rate 13 16 Blood Pressure 131/103 H 202/117 H Blood Pressure Mean 108 178 Pulse Oximetry 96 97 Oxygen Delivery Method Room Air Room Air Constitutional: Vital signs reviewed. Eyes: Pupils are equal round reactive to light. Conjunctiva are noninjected. ENT: Pharynx is clear without erythema or exudate. Mucous membranes are moist. Neck supple without meningeal signs. Respiratory: Clear to auscultation bilaterally. Breath sounds are equal bilaterally. Cardiovascular: Tachycardic. Heart rate 105. GI: Soft, nondistended and nontender. Bowel sounds are present. Musculoskeletal: No peripheral edema. No lower extremity tenderness. Integumentary: No cyanosis. or jaundice. Neurological: The patient is awake and alert. No focal deficits. Psychiatric: Slightly anxious. Course Administered Medications Discontinued Medications Aspirin (Aspirin 81 Mg Ectab) [facility] Stop: 09/18/20 08:59 Last Admin: 08/19/20 09:04 Dose: 81 mg Documented by: [id number] Famotidine (Famotidine 20 Mg Tab) 20 mg PO BID [facility] Stop: 09/18/20 08:59 Last Admin: 08/19/20 09:04 Dose: 20 mg Documented by: [id number] Ioversol (Optiray 320 125ml) 77 ml IV ONCE ONE Stop: 08/18/20 21:03 Last Admin: 08/18/20 21:03 Dose: 77 ml Documented by: [id number] Miscellaneous (Estrace~Order Awaiting Action) 1 ea N/A QS [facility] Stop: 09/18/20 07:59 Last Admin: 08/19/20 07:49 Dose: Not Given Documented by: [id number] Ondansetron HCl (Ondansetron Inj 2 Mg/Ml 2 Ml Vial) 4 mg IV Q6H PRN PRN Reason: Nausea Stop: 09/18/20 06:17 Last Admin: 08/19/20 06:32 Dose: 4 mg Documented by: [id number] Vitamin B Complex (Vitamin B Complex Tab) 1 [facility] Stop: 09/18/20 08:59 Last Admin: 08/19/20 09:03 Dose: 1 tab Documented by: [id number] Vitamin D (Cholecalciferol 1,000 Units 25 Mcg Tab) 1,000 units [facility] Stop: 09/18/20 08:59 Last Admin: 08/19/20 09:03 Dose: 1,000 units Documented by: [id number] Medical Decision Making Differential Diagnosis COVID-19, pneumonia, pulmonary embolism, unstable angina, anxiety, GERD Medical Records Attestation: I reviewed the patient's medical records. I did perform a limited focused review of portions of the patient's old chart on the electronic medical record. The patient has had no recent pertinent visits to this hospital. She did have rotator cuff surgery in February of this year. Home Medications Current Medication List: was personally reviewed by me Laboratory Data Attestation: I reviewed the patient's lab results. Result diagrams: 08/19/20 05:31 08/19/20 05:31 Lab Results 08/18/20 08/18/20 08/18/20 Range/Units 20:20 20:20 20:20 WBC 9.03 (4.8-10.8) K/uL RBC 4.39 (4.2-5.4) M/uL Hgb 14.2 (12.0-16.0) g/dL POC Hgb (12.0-16.0) g/dl Hct 40.9 (37-47) % POC Hct (37-47) % MCV 93.2 (80-100) fL MCH 32.3 (25-34) pg MCHC 34.7 (32-36) g/dL RDW Std Deviation 42.8 (36.4-46.3) fL RDW Coeff of Coral 12.7 (11.5-14.5) % Plt Count 277 (130-400) K/uL MPV 9.1 (7.4-10.4) fL Immature Gran % (Auto) 0.2 % Neut % (Auto) 61.3 % Lymph % (Auto) 29.2 % [place] % (Auto) 6.8 % Eos % (Auto) 1.7 % Baso % (Auto) 0.8 % Neut # (Auto) 5.54 (1.4-6.5) K/uL Lymph # (Auto) 2.64 (1.2-3.4) K/uL [place] # (Auto) 0.61 H (0.11-0.59) K/uL Eos # (Auto) 0.15 (0-0.5) K/uL Baso # (Auto) 0.07 (0-0.2) K/uL Immature Gran # (Auto) 0.02 (0.00-0.02) K/uL PT 10.1 (9.0-12.0) Seconds INR 1.0 (0.9-1.1) APTT 25.5 (21.0-31.0) Seconds PTT Ratio 0.9 POC Sodium (135-144) mmol/L Sodium 141 (136-145) mmol/L POC Potassium (3.3-5.0) mmol/L Potassium 3.8 (3.5-5.1) mmol/L POC Chloride (101-112) mmol/L Chloride 111 H (98-107) mmol/L Carbon Dioxide 24 (21-32) mmol/L POC Total CO2 (24-31) mmol/L Anion Gap 6.0 (3-11) POC Anion Gap (16-25) mmol/L POC BUN (7-18) mg/dl BUN 20 H (7-18) mg/dl Creatinine 1.02 (0.6-1.2) mg/dl POC Creatinine (0.6-1.3) mg/dl Est Cr Clr Drug Dosing 51.2 ml/min Est GFR ( Amer) 63.2 Est GFR (Non-Af Amer) 54.5 BUN/Creatinine Ratio 19.6 (10-20) Glucose 105 H (70-99) mg/dl POC Glucose (other) (70-99) mg/dl Calcium 9.6 (8.5-10.1) mg/dl POC Ioniz Calcium Anika (1.12-1.32) mmol/l Total Bilirubin 0.4 (0.2-1) mg/dl AST 19 (15-37) U/L ALT 29 (12-78) U/L Alkaline Phosphatase 75 (45-117) U/L Troponin I < 0.015 (0-0.045) ng/ml Total Protein 7.7 (6.4-8.2) gm/dl Albumin 4.3 (3.4-5.0) gm/dl Globulin 3.4 (2.5-4.0) gm/dl Albumin/Globulin Ratio 1.3 (0.9-2) Specimen Hemolysis COVID-19 Eval Order SARS-CoV-2, RNA, NAAT (NEGATIVE) 08/18/20 08/18/20 08/18/20 Range/Units 20:20 20:20 20:29 WBC (4.8-10.8) K/uL RBC (4.2-5.4) M/uL Hgb (12.0-16.0) g/dL POC Hgb 13.6 (12.0-16.0) g/dl Hct (37-47) % POC Hct 40 (37-47) % MCV (80-100) fL MCH (25-34) pg MCHC (32-36) g/dL RDW Std Deviation (36.4-46.3) fL RDW Coeff of Coral (11.5-14.5) % Plt Count (130-400) K/uL MPV (7.4-10.4) fL Immature Gran % (Auto) % Neut % (Auto) % Lymph % (Auto) % [place] % (Auto) % Eos % (Auto) % Baso % (Auto) % Neut # (Auto) (1.4-6.5) K/uL Lymph # (Auto) (1.2-3.4) K/uL [place] # (Auto) (0.11-0.59) K/uL Eos # (Auto) (0-0.5) K/uL Baso # (Auto) (0-0.2) K/uL Immature Gran # (Auto) (0.00-0.02) K/uL PT (9.0-12.0) Seconds INR (0.9-1.1) APTT (21.0-31.0) Seconds PTT Ratio POC Sodium 140 (135-144) mmol/L Sodium (136-145) mmol/L POC Potassium 4.5 (3.3-5.0) mmol/L Potassium (3.5-5.1) mmol/L POC Chloride 108 (101-112) mmol/L Chloride (98-107) mmol/L Carbon Dioxide (21-32) mmol/L POC Total CO2 24 (24-31) mmol/L Anion Gap (3-11) POC Anion Gap 14.0 L (16-25) mmol/L POC BUN 24 H (7-18) mg/dl BUN (7-18) mg/dl Creatinine (0.6-1.2) mg/dl POC Creatinine 0.8 (0.6-1.3) mg/dl Est Cr Clr Drug Dosing ml/min Est GFR ( Amer) Est GFR (Non-Af Amer) BUN/Creatinine Ratio (10-20) Glucose (70-99) mg/dl POC Glucose (other) 109 H (70-99) mg/dl Calcium (8.5-10.1) mg/dl POC Ioniz Calcium Anika 1.19 (1.12-1.32) mmol/l Total Bilirubin (0.2-1) mg/dl AST (15-37) U/L ALT (12-78) U/L Alkaline Phosphatase (45-117) U/L Troponin I (0-0.045) ng/ml Total Protein (6.4-8.2) gm/dl Albumin (3.4-5.0) gm/dl Globulin (2.5-4.0) gm/dl Albumin/Globulin Ratio (0.9-2) Specimen Hemolysis COVID-19 Eval Order [facility] SARS-CoV-2, RNA, NAAT NEGATIVE (NEGATIVE) Imaging Data Radiologist's Impression: [facility], [phone] CT Scan Report Patient: CHEO ZALDIVAR DAdlisette Date: 08/19/20MR#: [id number]: [id number] WNED[address] RICKSAcct ID:[id number]: Date: [address] Zip: [place], [place] [address]Hpm: 75Location: 2NSex: FRoom/Bed: [id number] Phy: Maciej Scott MDDiagnosis: SOBPri Phy: Chelsey Camacho PA-CService Date: 08/18/20Fam Phy:Interpreting Phy: Kevin Cunha MDAdmit Phy: Du Gould MD Ordering Phy: Osvaldo Dubois MD cc: ~ CT ANGIOGRAM OF THE CHEST CLINICAL HISTORY: Dyspnea. COMPARISON STUDY: Chest x-ray dated 02/11/2020. TECHNIQUE: Follow-up the IV administration of 77 cc of Optiray 320, CT angiogram of the chest was performed from the upper abdomen to the thoracic inlet utilizing the pulmonary embolus protocol. Images are reviewed in the axial, sagittal, and coronal planes. 3-D MIPS images are created and assessed. IV contrast was administered without complication. A dose lowering technique was utilized adhering to the principles of ALARA. The examination is degraded by motion artifact. CT DOSE: 740.85 mGy.cm FINDINGS: Thyroid: Imaged portions of the thyroid gland are normal in size and attenuation. Thoracic aorta: There is mild atherosclerotic calcification of the thoracic aorta, which is normal in caliber and demonstrates standard 3-vessel arch anatomy. No dissection is seen. Pulmonary vasculature: The pulmonary trunk is normal in caliber. There are no central filling defects identified in the main, lobar, or segmental pulmonary arteries to suggest pulmonary embolus. Heart: The heart is normal in size and without pericardial effusion. There are scattered coronary artery calcifications. Lungs and pleural spaces: Evaluation of lung parenchyma is modestly degraded by motion artifact. The lungs and pleural spaces are clear. Mediastinum: There is no mediastinal lymphadenopathy. Fidelia: Clear. Axillae: There is no axillary lymphadenopathy. Upper abdomen: Partially visualized upper abdominal viscera is within normal limits. Skeletal structures: The skeletal structures are osteopenic. Degenerative change and hyperkyphosis is noted in the thoracic spine. No lytic or blastic bony le sions are seen. A left shoulder arthroplasty is in place. Arthritic change is seen in the right shoulder and the right sternoclavicular joint. There are large ovoid cystic lesions seen arising from the neural foramina at multiple levels. The largest is seen on the left at T1-T2 on image #230 and measures 2.4 x 2.2 cm. The largest lesions are seen bilaterally at T1-T2, T2-T3, on the right at T3-T4. Additional smaller lesions are seen at lower thoracic levels. IMPRESSION: 1. There is no evidence of pulmonary embolus in the main, lobar, or segmental pulmonary arteries. 2. There is no airspace consolidation or pleural effusion. 3. There are numerous low-attenuation/cystic lesions seen arising from the thoracic neural foramina at multiple levels. This is greatest in the upper thoracic region, and these likely represent pseudomeningoceles or nerve sheath cysts. Nerve sheath tumors are considered less likely but could also have this appearance. Nonemergent MRI of the thoracic spine with IV contrast would be diagnostic if further assessment is warranted. ACT 112: Positive. There are findings on this exam that require communication between the performing entity and the patient following Patient Test Result Information Act ([place] Act 112) guidelines. Electronically signed by: Kevin Cunha M.D. 08/19/2020 7:32 AM Dictated: 08/19/20722Transcribed: 08/19/20722 ECG Data Attestation: I personally reviewed and interpreted this ECG as follows: Indication: + chest pain and + SOB/dyspnea Rate (beats per minute): 90 Rhythm: + normal sinus ECG [place]: + Normal ECG ST segments: + T-wave inversions; no ST elevation ECG Findings: no PVCs Comparison ECG Date: from (02/11/2020) Change: the following changes noted (T wave inversions are new in lead III) MDM Narrative I did evaluate the patient as noted above. The patient is presenting with chest discomfort and dyspnea. This started before she took a trip and later realized that she was in contact with people who had been diagnosed with COVID-19 at the . The patient was placed in respiratory isolation. I did order a COVID- 19 test on her. IV access was established. I did place an order for continuous cardiac monitoring. The monitor showed sinus tachycardia at a rate of 105 bpm. I did order and personally review the patient's 12-lead EKG as described above. She has some T wave inversions in lead III. No ST elevations are noted. I did order and review the patient's blood work as noted in the electronic medical record. CBC is unremarkable without leukocytosis or anemia. Electrolytes are unremarkable. Troponin is negative. I did order a CT angiogram of the chest. I did review the images myself as well as the radiology report as described above. This did not show any evidence of pulmonary embolism or pneumonia. COVID-19 testing was negative. I did discuss the case with the hospitalist and rn case mgr. Impression & Plan Chest pain Discharge Plan Visit Data Chief Complaint: Shortness of Breath/Dyspnea Stated Complaint: sob, pending covid test ED Provider: Osvaldo Dubois Discharge Problem: Chest pain Patient Disposition: Admitted As Inpatient Discharge Instructions Interventions: ED Discharge Assessment Last Done: 08/19/20 00:24
[2020-08-18 20:34] LABS: Basophils # (auto) 0.07 K/uL (0-0.2); Basophils % (auto) 0.8 %; Eosinophils # (auto) 0.15 K/uL (0-0.5); Eosinophils % (auto) 1.7 %; Hematocrit (blood only) 40.9 % (37-47); Hemoglobin 14.2 g/dL (12.0-16.0); Immature Granulocytes # (auto) 0.02 K/uL (0.00-0.02); Immature Granulocytes % (auto) 0.2 %; Lymphocytes # (auto) 2.64 K/uL (1.2-3.4); Lymphocytes % (auto) 29.2 %; Mean Corpuscular Hemoglobin 32.3 pg (25-34); Mean Corpuscular Hgb Conc 34.7 g/dL (32-36); Mean Corpuscular Volume 93.2 fL (80-100); Mean Platelet Volume 9.1 fL (7.4-10.4); Monocytes # (auto) 0.61 K/uL (0.11-0.59); Monocytes % (auto) 6.8 %; Neutrophils # (auto) 5.54 K/uL (1.4-6.5); Neutrophils % (auto) 61.3 %; Platelet Count 277 K/uL (130-400); RDW Coefficient of Variation 12.7 % (11.5-14.5); RDW Standard Deviation 42.8 fL (36.4-46.3); Red Blood Count 4.39 M/uL (4.2-5.4); White Blood Count 9.03 K/uL (4.8-10.8)
[2020-08-18 20:42] LABS: iSTAT Creatinine 0.8 mg/dl (0.6-1.3); iSTAT Hemoglobin 13.6 g/dl (12.0-16.0); iSTAT Ionized Calcium 1.19 mmol/l (1.12-1.32); iSTAT Potassium 4.5 mmol/L (3.3-5.0)
[2020-08-18 20:54] LABS: Partial Thromboplastin Ratio 0.9; Partial Thromboplastin Time 25.5 Seconds (21.0-31.0); Prothrombin Time 10.1 Seconds (9.0-12.0)
[2020-08-18 21:01] LABS: Alanine Aminotransferase 29 U/L (12-78); Albumin Level 4.3 gm/dl (3.4-5.0); Aspartate Aminotransferase 19 U/L (15-37); BUN Creatinine Ratio 19.6 (10-20); Blood Urea Nitrogen 20 mg/dl (7-18); Calcium 9.6 mg/dl (8.5-10.1); Carbon Dioxide 24 mmol/L (21-32); Chloride 111 mmol/L (98-107); Creatinine Clr Calc Pharmacy 51.2 ml/min; Est GFR (African American) 63.2; Est GFR (Non-African American) 54.5; Glucose 105 mg/dl (70-99); Potassium 3.8 mmol/L (3.5-5.1); Sodium 141 mmol/L (136-145)
[2020-08-18] MEDS ORDERED: OPTIRAY 320 125ml IV ONE (21:02)
[2020-08-18 21:07] LABS: Albumin Globulin Ratio 1.3 (0.9-2); Alkaline Phosphatase 75 U/L (45-117); Bilirubin,Total 0.4 mg/dl (0.2-1); Globulin 3.4 gm/dl (2.5-4.0); Total Protein 7.7 gm/dl (6.4-8.2); Troponin I < 0.015 ng/ml (0-0.045)
[2020-08-19] MEDS ORDERED: ACETAMINOPHEN 325 MG TAB PO PRN (00:52)
[2020-08-19] MEDS ORDERED: NITROGLYCERIN SL 0.4 MG/TAB TAB SL PRN (00:52)
[2020-08-19] MEDS ORDERED: FLUTICASONE PROPIONATE NA SPR 16 GM BTL PRN (01:25)
[2020-08-19] MEDS ORDERED: ALBUTEROL HFA 8 GM INHALER INH PRN (01:25)
--- NOTE | 2020-08-19 01:37 | History and Physical Report ---
DATE OF ADMISSION: 08/18/2020 CHIEF COMPLAINT: Shortness of breath and chest pain. HISTORY OF PRESENT ILLNESS: This is a 75-year-old female with past medical history significant for diabetes without complication, hyperlipidemia, mixed rhinitis, intermittent asthma, essential hypertension, obesity, GERD, primary osteoarthritis, tinnitus of both ears, who comes with chest pain and shortness of breath. The patient on 08/09/2020 traveled to attend a of her mother in [place], on the way in the flight she felt throat closing up with chest discomfort and shortness of breath. She thought it could be because of her over medication before travel. When she went there, she was found that her niece was COVID positive and she did not meet the niece, they did not even stayed there for 24 hours, they traveled back. She and her sister went there any they travelled back immediately after coming to know niece was covid positive. After coming back they found out that a couple of family members, which they interacted for a brief period of time with social distancing were also came back positive.Ish was tested for COVID last Friday and she is waiting for the results to come back.But she is getting short of breath on and off and today she could not take deep breath, shallow breathing, which worried her and came to the ER. In ER EKG, showed T-wave inversions in lead III and flattening in lead aVF. There is no lymphopenia. Troponin is negative. SARS-CoV-2 negative. CTA of the chest unremarkable. Currently resting comfortably and hemodynamically stable. Currently, she has no chest pain. No shortness of breath, no cough, no loss of sense of smell or taste. Appetite is good. No headache. She always has ears clogged up. No runny nose, no dysphagia, no nausea, no abdominal pain. She had episode of diarrhea yesterday, but she thinks because of her acid reflux medication. Normal bladder movements. No rash, no swelling in the legs currently. ALLERGIES: PENICILLINS, PRAVASTATIN, SIMVASTATIN, ATORVASTATIN, CAPSAICIN DICLOFENAC. PAST MEDICAL HISTORY: As mentioned above. PAST SURGICAL HISTORY: , colonoscopy, dilatation and curettage, injection of eye. tonsillectomy. MEDICATIONS: The patient is on Tylenol 1 gram p.o. q. 8 hours, albuterol 2 puffs inhalation q. 4 hours p.r.n., aspirin 81 mg p.o. daily, B complex 1 tablet daily, vitamin D 25 mcg p.o. daily, cimetidine 400 mg p.o. b.i.d., Benadryl 50 mg p.o. at bedtime p.r.n., estradiol 10 mg vaginal 2 times a week, flaxseed oil 1000 mg p.o. daily, Flonase 1 spray intranasal daily p.r.n., hydrocortisone topical b.i.d. p.r.n., lisinopril 5 mg p.o. at bedtime, Naprosyn 220 mg p.o. b.i.d. FAMILY HISTORY: Significant for sister has diabetes, glaucoma, hypertension. Mother had stroke, osteoporosis, macular degeneration, heart attack; father has heart disorder. SOCIAL HISTORY: No smoking, alcohol 3 standard drinks of alcohol per week. No drug use. REVIEW OF SYMPTOMS: As per HPI. Rest of review of systems negative. PHYSICAL EXAMINATION: GENERAL: The patient is of moderate build, not in acute distress. VITAL SIGNS: Temperature 36.6, pulse 83, respiratory rate 13, blood pressure 131/103, oxygen 96% room air. HEENT: Pupils equal, round, reactive to light. Oral mucosa moist. NECK: No JVD. No neck masses. CARDIOVASCULAR: S1, S2 heard, regular rate and rhythm, no murmur, no gallop. RESPIRATORY SYSTEM: Normal AP diameter. No accessory muscle use. No wheezing, no crackles. ABDOMEN: Soft, bowel sounds present, nontender. No distention. CENTRAL NERVOUS SYSTEM: Cranial nerves II-XII grossly intact, nonfocal. EXTREMITIES: No edema, no erythema. LABORATORY DATA: WBC 9, hemoglobin 14.2, hematocrit 40.9, platelets 277. PT 10.1, INR 1, APTT 25.5. Sodium 141, potassium 3.8, chloride 111, CO2 24, BUN 20, creatinine 1.02, serum glucose 105, calcium 9.6, total bilirubin 0.4, AST 19, ALT 29, alkaline phosphatase 75. Troponin I less than 0.015. SARS-CoV-[address] of the chest, preliminary report, no acute findings. EKG: Normal sinus rhythm, rate of 90, T-wave inversions seen in lead III and flattening of T waves in lead aVF. ASSESSMENT AND PLAN: This is a 75-year-old female who presents with shortness of breath, an episode of chest pain on 08/09/2020 when she was travelling to [place]. 1. Chest pain, shortness of breath. The patient is exposed to COVID for a brief period of time at the of her mother with social distancing. Her outpatient COVID testing is pending, but COVID testing here is negative and CTA of the chest is unremarkable and labs unremarkable, but she has some EKG changes, so we will observe overnight in the hospital and do serial enzymes, echo and consult cardiology in a.m. Keep n.p.o. until seen by cardiology. 2. History of asthma. Continue home albuterol p.r.n. 3. History of hypertension. Continue lisinopril. 4. Gastroesophageal reflux disease. On cimetidine. 5. Deep venous thrombosis prophylaxis, sequential compression devices for now. 6. Disposition: Observation in [facility]. Expect discharge home and follow with family doctor. Level 1 full code. MTDD
[2020-08-19 05:53] LABS: Basophils # (auto) 0.04 K/uL (0-0.2); Basophils % (auto) 0.5 %; Eosinophils # (auto) 0.19 K/uL (0-0.5); Eosinophils % (auto) 2.5 %; Hematocrit (blood only) 38.7 % (37-47); Hemoglobin 13.3 g/dL (12.0-16.0); Immature Granulocytes # (auto) 0.02 K/uL (0.00-0.02); Immature Granulocytes % (auto) 0.3 %; Lymphocytes # (auto) 2.21 K/uL (1.2-3.4); Lymphocytes % (auto) 29.2 %; Mean Corpuscular Hemoglobin 32.1 pg (25-34); Mean Corpuscular Hgb Conc 34.4 g/dL (32-36); Mean Corpuscular Volume 93.5 fL (80-100); Mean Platelet Volume 9.1 fL (7.4-10.4); Monocytes # (auto) 0.63 K/uL (0.11-0.59); Monocytes % (auto) 8.3 %; Neutrophils # (auto) 4.47 K/uL (1.4-6.5); Neutrophils % (auto) 59.2 %; Platelet Count 288 K/uL (130-400); RDW Coefficient of Variation 12.9 % (11.5-14.5); RDW Standard Deviation 43.6 fL (36.4-46.3); Red Blood Count 4.14 M/uL (4.2-5.4); White Blood Count 7.56 K/uL (4.8-10.8)
[2020-08-19 06:10] LABS: BUN Creatinine Ratio 20.9 (10-20); Blood Urea Nitrogen 16 mg/dl (7-18); Calcium 8.9 mg/dl (8.5-10.1); Carbon Dioxide 26 mmol/L (21-32); Chloride 111 mmol/L (98-107); Creatinine Clr Calc Pharmacy 65.9 ml/min; Est GFR (African American) 86.1; Est GFR (Non-African American) 74.3; Glucose 109 mg/dl (70-99); Magnesium 2.4 mg/dl (1.8-2.4); Potassium 3.7 mmol/L (3.5-5.1); Sodium 141 mmol/L (136-145)
[2020-08-19 06:14] LABS: Troponin I < 0.015 ng/ml (0-0.045)
[2020-08-19] MEDS ORDERED: ONDANSETRON INJ 2 MG/ML 2 ML VIAL IV PRN (06:18)
--- NOTE | 2020-08-19 07:34 | CT Scan Report ---
CT ANGIOGRAM OF THE CHEST CLINICAL HISTORY: Dyspnea. COMPARISON STUDY: Chest x-ray dated 02/11/2020. TECHNIQUE: Follow-up the IV administration of 77 cc of Optiray 320, CT angiogram of the chest was per formed from the upper abdomen to the thoracic inlet utilizing the pulmonary embolus protocol. Images are reviewed in the axial, sagittal, and coronal planes. 3-D MIPS images are created and assessed. IV contrast was administered without complication. A dose lowering technique was utilized adhering to the principles of ALARA. The examination is degraded by motion artifact. CT DOSE: 740.85 mGy.cm FINDINGS: Thyroid: Imaged portions of the thyroid gland are normal in size and attenuation. Thoracic aorta: There is mild atherosclerotic calcification of the thoracic aorta, which is normal in caliber and demonstrates standard 3-vessel arch anatomy. No dissection is seen. Pulmonary vasculature: The pulmonary trunk is normal in caliber. There are no central filling defects identified in the main, lobar, or segmental pulmonary arteries to suggest pulmonary embolus. Heart: The heart is normal in size and without pericardial effusion. There are scattered coronary art juan antonio calcifications. Lungs and pleural spaces: Evaluation of lung parenchyma is modestly degraded by motion artifact. The lungs and pleural spaces are clear. Mediastinum: There is no mediastinal lymphadenopathy. Fidelia: Clear. Axillae: There is no axillary lymphadenopathy. Upper abdomen: Partially visualized upper abdominal viscera is within normal limits. Skeletal structures: The skeletal structures are osteopenic. Degenerative change and hyperkyphosis is noted in the thoracic spine. No lytic or blastic bony lesions are seen. A left shoulder arthroplasty is in place. Arthritic change is seen in the right shoulder and the right sternoclavicular joint. Th ere are large ovoid cystic lesions seen arising from the neural foramina at multiple levels. The larg est is seen on the left at T1-T2 on image #230 and measures 2.4 x 2.2 cm. The largest lesions are see n bilaterally at T1-T2, T2-T3, on the right at T3-T4. Additional smaller lesions are seen at lower th oracic levels. IMPRESSION: 1. There is no evidence of pulmonary embolus in the main, lobar, or segmental pulmonary arteries. 2. There is no airspace consolidation or pleural effusion. 3. There are numerous low-attenuation/cystic lesions seen arising from the thoracic neural foramina a t multiple levels. This is greatest in the upper thoracic region, and these likely represent pseudome ningoceles or nerve sheath cysts. Nerve sheath tumors are considered less likely but could also have this appearance. Nonemergent MRI of the thoracic spine with IV contrast would be diagnostic if furthe r assessment is warranted. ACT 112: Positive. There are findings on this exam that require communication between the performing entity and the patient following Patient Test Result Information Act ([place] Act 112) guidelines. Electronically signed by: Kevin Cunha M.D. 08/19/2020 7:32 AM
[2020-08-19] MEDS ORDERED: ESTRACE~ORDER AWAITING ACTION SCH (08:00)
[2020-08-19] MEDS ORDERED: ASPIRIN 81 MG ECTAB PO SCH (09:00)
[2020-08-19] MEDS ORDERED: VITAMIN B COMPLEX TAB PO SCH (09:00)
[2020-08-19] MEDS ORDERED: CHOLECALCIFEROL 1,000 UNITS 25 MCG TAB PO SCH (09:00)
[2020-08-19] MEDS ORDERED: FAMOTIDINE 20 MG TAB PO SCH (09:00)
[2020-08-19 09:01] LABS: Estimated Average Glucose 108 mg/dl; Hemoglobin A1C 5.4 % (4.5-5.6)
--- NOTE | 2020-08-19 10:44 | Cardiology Consultation ---
Date of Consultation August 19, 2020 Assessment & Plan (1) Chest pain: (2) Anxiety: I believe this is noncardiac chest pain. The patient has been under a lot of stress with the loss of her mother and having to fly to [place] only to find out that several family members had tested positive for Covid. This increased her stress level and on the flight home she had shortness of breath and chest heaviness which may have been due to anxiety. She feels well now. I do not believe any additional cardiac testing is indicated. From a cardiac standpoint I believe she can be discharged to outpatient follow-up. History of Present Illness Attending Physician: Maciej Scott MD History of Present Illness This is a 75-year-old female with no prior history of heart disease. Unfortunately, her mother in [place] and the patient traveled there this week. She flew down to [place] and when she got there, several family members had tested positive for Covid. She became frightened and immediately returned on a flight to [place]. On that flight the patient developed shortness of breath and chest heaviness. She decided to come to the emergency department. After admission her cardiac markers have been negative. Her EKG shows no acute changes. There is a left posterior hemiblock on her second EKG which I believe is due to lead placement. Echocardiogram completed this morning showed normal LV function and no wall motion abnormalities that would suggest ischemic heart disease. She has had no further chest pain or shortness of breath. Allergies Allergy/AdvReac Type Severity Reaction Status Date / Time Penicillins Allergy Intermediate HIVES Verified 08/18/20 19:36 pravastatin Allergy Mild LEG PAIN Verified 08/18/20 19:36 simvastatin Allergy Mild LEG PAIN Verified 08/18/20 19:36 atorvastatin AdvReac Mild LEG PAIN Verified 08/18/20 19:36 capsaicin AdvReac Mild GI SYMPTOMS Verified 08/18/20 19:36 diclofenac AdvReac Mild GI SYMPTOMS Verified 08/18/20 19:36 Diclopak AdvReac Mild GI SYMPTOMS Verified 03/04/13 11:16 Home Medications Medication Instructions Recorded Confirmed Type aspirin 81 mg tablet,delayed 81 mg PO QAM tab 06/16/19 08/18/20 History release lisinopril 5 mg tablet 5 mg PO HS 09/10/19 08/18/20 History B-complex with vitamin C [Super B 1 tab PO QAM 11/29/19 08/18/20 History Complex-Vitamin C] Flonase Sensimist 1 spray INTRANASAL DAILY PRN 11/29/19 08/18/20 History cholecalciferol (vitamin D3) 25 mcg PO QAM 11/29/19 08/18/20 History [Vitamin D3] diphenhydramine HCl [Benadryl] 50 mg PO HS PRN 11/29/19 08/18/20 History acetaminophen 1,000 mg PO Q8 #60 tab 02/18/20 08/18/20 Rx Naproxen PM 220 mg PO BID 08/18/20 08/18/20 History albuterol sulfate [ProAir HFA] 2 puff INHALATION Q4 PRN 08/18/20 08/18/20 History cimetidine 400 mg PO BID 08/18/20 08/18/20 History estradiol 10 mcg VAGINAL 2XWK 08/18/20 08/18/20 History flaxseed oil 1,000 mg PO DAILY 08/18/20 08/18/20 History hydrocortisone 1 applic TOPICAL TID PRN 08/18/20 08/18/20 History Patient History Medical History (Updated 08/19/20 @ 10:40 by Pio Rosen DO) GERD (gastroesophageal reflux disease) "SILENT" Hyperlipidemia "CONTROLLED" Hypertension Osteoarthritis Prediabetes Surgical History History of bilateral tubal ligation History of section X 1 History of colonoscopy History of dilatation and curettage History of esophagogastroduodenoscopy (EGD) History of tonsillectomy and adenoidectomy History of tooth extraction Macular hole LEFT EYE INJECTION Nausea and vomiting after administration of anesthetic agent Rectocele REPAIRED Family History Sister Family history of diabetes mellitus Social History Smoking Status: Never smoker Second Hand Exposure: Yes ( A CHILD); Hx Alcohol Use: Yes Alcohol type: wine and hard liquor Hx Substance Use: No Preferred Language: Mohawk Communication Ability: Effective 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 Physical Exam Physical Exam: General: no acute distress and stated age Head: normocephalic, no masses, lesions, tenderness or abnormalities Eyes: conjunctiva are pink and non-injected, sclera clear Neck: supple, no adenopathy, no bruits, normal jugular venous pulse, no hepatojugular reflux Chest: normal shape and normal respiratory effort Lungs: clear to auscultation and percussion Cardiac Exam: - regular rate & rhythm, no murmurs gallops or rubs - normal S1, normal S2 Pulses: 2(+) throughout Abdomen: abdomen soft, non-tender, no abnormal masses and no hepatosplenomegaly Musculoskeletal: no gait disturbance, no joint inflammation, no deforming arthritis Extremities: no edema and no cyanosis Neuro: grossly normal exam Results & Data ([facility]) Vital Signs (Past 12 Hours) Vital Signs Temp Pulse Pulse Resp BP BP Pulse Ox 08/19/20 07:01 36.4 C L 74 18 123/84 92 08/19/20 07:00 88 08/19/20 04:00 36.7 C 96 H 78 18 113/76 97 08/19/20 00:53 36.5 C 88 16 161/95 H 94 08/19/20 00:01 72 14 123/77 97 08/18/20 23:31 85 12 141/87 H 97 08/18/20 23:01 95 H 16 202/117 H 97 Laboratory Results Laboratory Results - last 24 hr 08/18/20 08/18/20 08/18/20 20:20 20:20 20:20 WBC 9.03 RBC 4.39 Hgb 14.2 POC Hgb Hct 40.9 POC Hct MCV 93.2 MCH 32.3 MCHC 34.7 RDW Std Deviation 42.8 RDW Coeff of Coral 12.7 Plt Count 277 MPV 9.1 Immature Gran % (Auto) 0.2 Neut % (Auto) 61.3 Lymph % (Auto) 29.2 Cedar % (Auto) 6.8 Eos % (Auto) 1.7 Baso % (Auto) 0.8 Neut # (Auto) 5.54 Lymph # (Auto) 2.64 Cedar # (Auto) 0.61 H Eos # (Auto) 0.15 Baso # (Auto) 0.07 Immature Gran # (Auto) 0.02 PT 10.1 INR 1.0 APTT 25.5 PTT Ratio 0.9 POC Sodium Sodium 141 POC Potassium Potassium 3.8 POC Chloride Chloride 111 H Carbon Dioxide 24 POC Total CO2 Anion Gap 6.0 POC Anion Gap POC BUN BUN 20 H Creatinine 1.02 POC Creatinine Est Cr Clr Drug Dosing 51.2 Est GFR ( Amer) 63.2 Est GFR (Non-Af Amer) 54.5 BUN/Creatinine Ratio 19.6 Glucose 105 H POC Glucose (other) Estimat Average Glucose Hemoglobin A1c Calcium 9.6 POC Ioniz Calcium Anika Magnesium Total Bilirubin 0.4 AST 19 ALT 29 Alkaline Phosphatase 75 Troponin I < 0.015 Total Protein 7.7 Albumin 4.3 Globulin 3.4 Albumin/Globulin Ratio 1.3 Specimen Hemolysis COVID-19 Eval Order SARS-CoV-2, RNA, NAAT 08/18/20 08/18/20 08/18/20 20:20 20:20 20:29 WBC RBC Hgb POC Hgb 13.6 Hct POC Hct 40 MCV MCH MCHC RDW Std Deviation RDW Coeff of Coral Plt Count MPV Immature Gran % (Auto) Neut % (Auto) Lymph % (Auto) Cedar % (Auto) Eos % (Auto) Baso % (Auto) Neut # (Auto) Lymph # (Auto) Cedar # (Auto) Eos # (Auto) Baso # (Auto) Immature Gran # (Auto) PT INR APTT PTT Ratio POC Sodium 140 Sodium POC Potassium 4.5 Potassium POC Chloride 108 Chloride Carbon Dioxide POC Total CO2 24 Anion Gap POC Anion Gap 14.0 L POC BUN 24 H BUN Creatinine POC Creatinine 0.8 Est Cr Clr Drug Dosing Est GFR ( Amer) Est GFR (Non-Af Amer) BUN/Creatinine Ratio Glucose POC Glucose (other) 109 H Estimat Average Glucose Hemoglobin A1c Calcium POC Ioniz Calcium Anika 1.19 Magnesium Total Bilirubin AST ALT Alkaline Phosphatase Troponin I Total Protein Albumin Globulin Albumin/Globulin Ratio Specimen Hemolysis COVID-19 Eval [facility] SARS-CoV-2, RNA, NAAT NEGATIVE 08/19/20 08/19/20 08/19/20 05:31 05:31 07:46 WBC 7.56 RBC 4.14 L Hgb 13.3 POC Hgb Hct 38.7 POC Hct MCV 93.5 MCH 32.1 MCHC 34.4 RDW Std Deviation 43.6 RDW Coeff of Coral 12.9 Plt Count 288 MPV 9.1 Immature Gran % (Auto) 0.3 Neut % (Auto) 59.2 Lymph % (Auto) 29.2 Cedar % (Auto) 8.3 Eos % (Auto) 2.5 Baso % (Auto) 0.5 Neut # (Auto) 4.47 Lymph # (Auto) 2.21 Cedar # (Auto) 0.63 H Eos # (Auto) 0.19 Baso # (Auto) 0.04 Immature Gran # (Auto) 0.02 PT INR APTT PTT Ratio POC Sodium Sodium 141 POC Potassium Potassium 3.7 POC Chloride Chloride 111 H Carbon Dioxide 26 POC Total CO2 Anion Gap 4.0 POC Anion Gap POC BUN BUN 16 Creatinine 0.79 POC Creatinine Est Cr Clr Drug Dosing 65.9 Est GFR ( Amer) 86.1 Est GFR (Non-Af Amer) 74.3 BUN/Creatinine Ratio 20.9 H Glucose 109 H POC Glucose (other) Estimat Average Glucose Hemoglobin A1c Calcium 8.9 POC Ioniz Calcium Anika Magnesium 2.4 Total Bilirubin AST ALT Alkaline Phosphatase Troponin I < 0.015 < 0.015 Total Protein Albumin Globulin Albumin/Globulin Ratio Specimen Hemolysis COVID-19 Eval Order SARS-CoV-2, RNA, NAAT 08/19/20 07:46 WBC RBC Hgb POC Hgb Hct POC Hct MCV MCH MCHC RDW Std Deviation RDW Coeff of Coral Plt Count MPV Immature Gran % (Auto) Neut % (Auto) Lymph % (Auto) Cedar % (Auto) Eos % (Auto) Baso % (Auto) Neut # (Auto) Lymph # (Auto) Cedar # (Auto) Eos # (Auto) Baso # (Auto) Immature Gran # (Auto) PT INR APTT PTT Ratio POC Sodium Sodium POC Potassium Potassium POC Chloride Chloride Carbon Dioxide POC Total CO2 Anion Gap POC Anion Gap POC BUN BUN Creatinine POC Creatinine Est Cr Clr Drug Dosing Est GFR ( Amer) Est GFR (Non-Af Amer) BUN/Creatinine Ratio Glucose POC Glucose (other) Estimat Average Glucose 108 Hemoglobin A1c 5.4 Calcium POC Ioniz Calcium Anika Magnesium Total Bilirubin AST ALT Alkaline Phosphatase Troponin I Total Protein Albumin Globulin Albumin/Globulin Ratio Specimen Hemolysis COVID-19 Eval Order SARS-CoV-2, RNA, NAAT Medications Administered Current Inpatient Medications Acetaminophen (Acetaminophen 325 Mg Tab) 650 mg PO Q4H PRN PRN Reason: Pain or Fever Stop: 09/18/20 00:51 Albuterol (Albuterol Hfa 8 Gm Inhaler) 2 puffs INH Q4 PRN PRN Reason: Shortness Of Breath Or Wheezing Stop: 09/18/20 01:24 Aspirin (Aspirin 81 Mg Ectab) 81 mg PO [facility] Stop: 09/18/20 08:59 Last Admin: 08/19/20 09:04 Dose: 81 mg Documented by: Famotidine (Famotidine 20 Mg Tab) 20 mg PO BID [facility] Stop: 09/18/20 08:59 Last Admin: 08/19/20 09:04 Dose: 20 mg Documented by: Fluticasone Propionate (Fluticasone Propionate Na Spr 16 Gm Btl) 1 sprays NA DAILY PRN PRN Reason: Nasal Congestion Stop: 09/18/20 01:24 Lisinopril (Lisinopril 5 Mg Tab) 5 mg PO HS [facility] Stop: 09/18/20 20:59 Miscellaneous (Estrace~Order Awaiting Action) 1 ea N/A QS [facility] Stop: 09/18/20 07:59 Last Admin: 08/19/20 07:49 Dose: Not Given Documented by: Nitroglycerin (Nitroglycerin Sl 0.4 Mg/Tab Tab) 0.4 mg SL UD PRN PRN Reason: Chest Pain Stop: 09/18/20 00:51 Ondansetron HCl (Ondansetron Inj 2 Mg/Ml 2 Ml Vial) 4 mg IV Q6H PRN PRN Reason: Nausea Stop: 09/18/20 06:17 Last Admin: 08/19/20 06:32 Dose: 4 mg Documented by: Vitamin B Complex (Vitamin B Complex Tab) 1 tab PO [facility] Stop: 09/18/20 08:59 Last Admin: 08/19/20 09:03 Dose: 1 tab Documented by: Vitamin D (Cholecalciferol 1,000 Units 25 Mcg Tab) [facility] [place] Stop: 09/18/20 08:59 Last Admin: 08/19/20 09:03 Dose: 1,000 units Documented by:
--- NOTE | 2020-08-19 12:12 | Hospitalist Progress Note ---
Date of Service August 19, 2020 Assessment & Plan (1) Chest pain: Presented with CP and SOB. Under stress due to recent of mother and concern about possible exposure to COVID-19. EKG showed nonspecific changes. Serial troponins negative. Echo did not show any wall motion abnormalities. CTA chest negative for PE. Seen in consultation by Cardiology. No need for further cardiac evaluation. (2) Anxiety: Under stress due to of mother and concern about exposure to COVID-19. Give Rx for lorazepam 0.5 mg PRN anxiety / 1 mg PRN insomnia. Consider antidepressant if ongoing concerns. (3) Abnormal CT scan, chest: Incidental findings on CTA of chest: "There are numerous low-attenuation/cystic lesions seen arising from the thoracic neural foramina at multiple levels. This is greatest in the upper thoracic region, and these likely represent pseudomeningoceles or nerve sheath cysts. Nerve sheath tumors are considered less likely but could also have this appearance. Nonemergent MRI of the thoracic spine with IV contrast would be diagnostic if further assessment is warranted." No back pain, lower extremity weakness, or bowl/bladder dysfunction. Outpatient MRI thoracic spine with contrast recommended. Explained to patient. Will ask PCP to arrange. (4) COVID-19 ruled out: Family member(s) at mother's reportedly COVID+, but patient did not have any direct exposure. SARS-CoV-2 PCR negative. No pulmonary infiltrates on CTA chest. No lymphopenia. (5) DVT prophylaxis: SCD's. (6) Discharge planning issues: Discharge to home. Primary care follow-up with Chelsey Camacho PA-C. Admission and Anticipated Discharge Date Admission Date: August 18, 2020 Subjective Doing well. No further chest pain or SOB. Seen by Cardiology. No need for further cardiac evaluation. Physical Exam Constitutional: no acute distress Eyes: + anicteric sclerae Respiratory: normal respiratory effort, lungs clear to auscultation Cardiovascular: Rate/Rhythm: regular rate and regular rhythm Vessels: no JVD Extremities: no calf tenderness and no edema Gastrointestinal (Abdomen): normal bowel sounds, soft, nontender, no hepatosplenomegaly Musculoskeletal: Extremities: no cyanosis Skin: no rashes, warm and dry Psychiatric: Orientation: alert and oriented x 3 Results & Data Results & Data ([facility]) Vital Signs (Past 12 Hours) Vital Signs Temp Pulse Pulse Resp BP Pulse Ox 08/19/20 11:17 37.0 C 74 16 116/77 96 08/19/20 07:01 36.4 C L 74 18 123/84 92 08/19/20 07:00 88 08/19/20 04:00 36.7 C 96 H 78 18 113/76 97 08/19/20 00:53 36.5 C 88 16 161/95 H 94 Laboratory Results 08/19/20 05:31 08/19/20 05:31 Laboratory Tests 08/18/20 08/19/20 08/19/20 20:20 05:31 07:46 Troponin I < 0.015 < 0.015 < 0.015 ECG Additional Comments: EKG performed at 0700 reviewed and demonstrated NSR at 75 / min, NSSTTWA's. (1) Chest pain Chest pain type: unspecified Qualified Code(s): R07.9 - Chest pain, unspecified
[2020-08-19] MEDS ORDERED: lisinopril 5 MG TAB PO SCH (21:00)
--- NOTE | 2020-08-21 06:11 | Electrocardiogram Report ---
Test Reason : Blood Pressure : / mmHG Vent. Rate : 090 BPM Atrial Rate : 090 BPM P-R Int : 132 ms QRS Dur : 080 ms QT Int : 358 ms P-R-T Axes : 038 024 009 degrees QTc Int : 437 ms Poor data quality, interpretation may be adversely affected Normal sinus rhythm Nonspecific T wave abnormality Abnormal ECG When compared with ECG of 11-FEB-2020 11:49, T wave inversion now evident in Inferior leads Confirmed by Del Kumar ([id number]) on 08/21/2020 6:10:57 AM Referred By: REFERRED SELF Confirmed By:Del Kumar
--- NOTE | 2020-08-21 06:18 | Electrocardiogram Report ---
Test Reason : Blood Pressure : / mmHG Vent. Rate : 075 BPM Atrial Rate : 075 BPM P-R Int : 138 ms QRS Dur : 084 ms QT Int : 390 ms P-R-T Axes : 000 139 159 degrees QTc Int : 435 ms Normal sinus rhythm Arm Lead reversal Normal ECG correcting for lead reversal When compared with ECG of 18-AUG-2020 20:03, (unconfirmed) Nonspecific ST abnormality is no longer Present Anterior leads Confirmed by Del Kumar ([id number]) on 08/21/2020 6:17:55 AM Referred By: REFERRED SELF Confirmed By:Del Kumar
--- NOTE | 2020-08-21 08:46 | Discharge Summary ---
Date of Service Date of Admission: 08/18/20 Date of Discharge: 08/19/20 Admission HPI Per Admitting Provider This is a 75-year-old female with past medical history significant for diabetes without complication, hyperlipidemia, mixed rhinitis, intermittent asthma, essential hypertension, obesity, GERD, primary osteoarthritis, tinnitus of both ears, who comes with chest pain and shortness of breath. The patient on 08/09/2020 traveled to attend a of her mother in [place], on the way in the flight she felt throat closing up with chest discomfort and shortness of breath. She thought it could be because of her over medication before travel. When she went there, she was found that her niece was COVID positive and she did not meet the niece, they did not even stayed there for 24 hours, they traveled back. She and her sister went there any they travelled back immediately after coming to know niece was covid positive. After coming back they found out that a couple of family members, which they interacted for a brief period of time with social distancing were also came back positive.Ish was tested for COVID last Friday and she is waiting for the results to come back.But she is getting short of breath on and off and today she could not take deep breath, shallow breathing, which worried her and came to the ER. In ER EKG, showed T-wave inversions in lead III and flattening in lead aVF. There is no lymphopenia. Troponin is negative. SARS-CoV-2 negative. CTA of the chest unremarkable. Currently resting comfortably and hemodynamically stable. Currently, she has no chest pain. No shortness of breath, no cough, no loss of sense of smell or taste. Appetite is good. No headache. She always has ears clogged up. No runny nose, no dysphagia, no nausea, no abdominal pain. She had episode of diarrhea yesterday, but she thinks because of her acid reflux medication. Normal bladder movements. No rash, no swelling in the legs currently. Principal Diagnosis chest pain + dyspnea - [place], pneumonia, COVID-19, pulmonary embolism ruled out OTHER ACUTE / NEW DIAGNOSES: abnormal CTA chest "There are numerous low-attenuation/cystic lesions seen arising from the thoracic neural foramina at multiple levels. This is greatest in the upper thoracic region, and these likely represent pseudomeningoceles or nerve sheath cysts. Nerve sheath tumors are considered less likely but could also have this a ppearance. Nonemergent MRI of the thoracic spine with IV contrast would be diagnostic if further assessment is warranted." Discharge Data Allergies Allergy/AdvReac Type Severity Reaction Status Date / Time Penicillins Allergy Intermediate HIVES Verified 08/18/20 19:36 pravastatin Allergy Mild LEG PAIN Verified 08/18/20 19:36 simvastatin Allergy Mild LEG PAIN Verified 08/18/20 19:36 atorvastatin AdvReac Mild LEG PAIN Verified 08/18/20 19:36 capsaicin AdvReac Mild GI SYMPTOMS Verified 08/18/20 19:36 diclofenac AdvReac Mild GI SYMPTOMS Verified 08/18/20 19:36 Diclopak AdvReac Mild GI SYMPTOMS Verified 03/04/13 11:16 Consultations 08/18/20 20:43 ED Decision to Admit Stat 08/19/20 08:00 Consult Cardiology Routine Ordered Studies 08/18/20 19:02 CT angio chest PE protocol Urgent Hospital Course (1) Chest pain: Presented with CP and SOB. Under stress due to recent of mother and concern about possible exposure to COVID-19. EKG showed nonspecific changes. Serial troponins negative. Echo did not show any wall motion abnormalities. CTA chest negative for PE. Seen in consultation by Cardiology. No need for further cardiac evaluation. (2) Anxiety: Under stress due to of mother and concern about possible exposure to COVID-19. Give Rx for lorazepam 0.5 mg PRN anxiety / 1 mg PRN insomnia. Consider antidepressant if ongoing concerns. (3) Abnormal CT scan, chest: Incidental findings on CTA of chest: "There are numerous low-attenuation/cystic lesions seen arising from the thoracic neural foramina at multiple levels. This is greatest in the upper thoracic region, and these likely represent pseudomeningoceles or nerve sheath cysts. Nerve sheath tumors are considered less likely but could also have this appearance. Nonemergent MRI of the thoracic spine with IV contrast would be drake gnostic if further assessment is warranted." No back pain, lower extremity weakness, or bowl/bladder dysfunction. Outpatient MRI thoracic spine with contrast recommended. Explained to patient. Will ask PCP to arrange. (4) Prediabetes: Hgb A1c 5.4. FBS 109. (5) COVID-19 ruled out: Family member(s) at mother's reportedly COVID+, but patient did not have any direct exposure. SARS-CoV-2 PCR negative. No pulmonary infiltrates on CTA chest. No lymphopenia. (6) DVT prophylaxis: SCD's. (7) Discharge planning issues: Discharge to home. Primary care follow-up with Chelsey Camacho PA-C. Total Time Total Time Spent Total Time Spent (In Minutes): 30 Discharge Plan Discharge Items Patient Disposition: Home - Self-Care Reason For Visit: chest pain, trouble breathing Discharge Diagnosis: chest pain- no sign of heart attack trouble breathing- no sign of COVID or other types of pneumonia Activity: Resume your previous activity Non-emergency contact: Primary Care Provider and Hospitalist Call non-emergency contact if: you have any medication questions and your symptoms worsen Follow-up/Referrals: Maciej Hadley MD [Physician] - (08/23/2020 11:00 AM Maciej Hadley III, MD) Chelsey Camacho PA-C [Primary Care Provider] - Diet: Carb Consistent or DM2 and Heart Healthy Addtl Attending Provider Instructions: MEDICATION CHANGES: lorazepam (Ativan) 0.5 mg 1 pill every 8 hrs as needed for anxiety or nausea 2 pills at bedtime as needed for sleep may cause drowsiness Try not to take naproxen if possible- it could cause irritation or ulcers of esophagus and stomach. Try acetaminophen 500 mg (Extra Strength Tylenol) 2 pills every 8 hrs as needed for pain. SUMMARY OF TEST RESULTS: Blood tests did not show any sign of damage to the heart. Echocardiogram (ultrasound) did not show any sign of heart damage. Blood pressures were high, probably because of stress. Blood pressure the morning of discharge was 123/84. Continue usual blood pressure medication (lisinopril). Recheck blood pressure in clinic. Fasting blood sugar was 109. Hemoglobin A1c was 5.4. COVID test was negative. CT scan of chest: no sign of blood clots no sign of COVID or other pneumonia. CT scan of chest did show: "There are numerous low-attenuation/cystic lesions seen arising from the thoracic neural foramina at multiple levels. This is greatest in the upper thoracic region, and these likely represent pseudomeningoceles or nerve sheath cysts. Nerve sheath tumors are considered less likely but could also have this appearance. Nonemergent MRI of the thoracic spine with IV contrast would be diagnostic if further assessment is warranted." Significance of these findings uncertain- hopefully nothing serious. Please ask Dr. Hadley or Chelsey Camacho PA-C to schedule MRI of you thoracic spine. Seek medical attention if you develop leg weakness, leg or back pain, trouble with your bladder or bowels. OTHER INSTRUCTIONS: Please be extra careful to avoid COVID-19: wear a mask when around other people wash your hands often practice social distancing Seek medical attention if you have: * temperature above 101 * chest pain or trouble breathing * abdominal pain, nausea, vomiting * diarrhea, dark stools or bloody stools * any unanswered questions or concerns Call 911 if symptoms are severe. Please take good care of yourself. Call if you have any questions or problems. You can reach a [facility] hospitalist on duty at [facility] 24 hours a day by calling [phone]. My cell # is [phone]. Pending Studies at Discharge: No Stand-Alone Forms: My [facility], Smoking Cessation Medications and DC Order Prescriptions: New lorazepam 0.5 mg tablet 0.5 mg PO Q8H PRN (Reason: anxiety or nausea) Qty: 15 RF: 0 Continued aspirin 81 mg tablet,delayed release (DR/EC) 81 mg PO QAM RF: 0 lisinopril 5 mg tablet 5 mg PO HS RF: 0 diphenhydramine HCl [Benadryl] 25 mg Capsule 50 mg PO HS PRN (Reason: Sleep) RF: 0 B-complex with vitamin C [Super B Complex-Vitamin C] Tablet 1 tab PO QAM RF: 0 cholecalciferol (vitamin D3) [Vitamin D3] 25 mcg (1,000 unit) Tablet 25 mcg PO QAM RF: 0 Flonase Sensimist 27.5 mcg/actuation [place],Suspension 1 spray INTRANASAL DAILY PRN (Reason: Nasal Congestion) RF: 0 acetaminophen 500 mg Tablet 1,000 mg PO Q8 Qty: 60 RF: 0 hydrocortisone 1 % Ointment 1 applic TOPICAL TID PRN (Reason: IRRITATION) RF: 0 flaxseed oil 1,000 mg Capsule 1,000 mg PO DAILY RF: 0 cimetidine 200 mg tablet 400 mg PO BID RF: 0 albuterol sulfate [ProAir HFA] 90 mcg/actuation Hfa Aerosol Inhaler 2 puff INHALATION Q4 PRN (Reason: Shortness Of Breath Or Wheezing) RF: 0 estradiol 10 mcg tablet 10 mcg VAGINAL 2XWK RF: 0 Naproxen PM 220 mg PO BID RF: 0 Discharge Orders: Discharge Order (Routine); Ordered 08/19/20 Ordered By: Maciej Scott Admission Data Admit Date/Time: 08/18/20 23:19 Attending Provider: Maciej Scott Admit Provider: Du Gould Primary Care Provider: Chelsey Camacho Other Providers: Du Gould ; Kishore Coffey ; Jorge A Sawyer ; Christiano Gomez ; Osvaldo Garcia ; Pio Rosen ; Jose F Falk ; Irasema Bravo ; Melissa Christopher ; Anson Pruitt Other Interventions: Discharge Summary Assessment (RN) Last Done: 08/19/20 13:01
== END 2020-08-19 14:16 | disposition home or self-care (01) ==
LOC: ED 16:13 → EDINP 16:13 → 2N 16:13

== ENCOUNTER 2021-09-24 05:11 | Observation (INO) ==
--- NOTE | 2021-08-24 08:39 | PAT Medication Instructions ---
Medication Instructions Date of Service August 24, 2021 Home Medications Medication Instructions Recorded lorazepam 0.5 mg tablet 0.5 mg PO Q8H PRN #15 tab 08/19/20 estradiol 10 mcg vaginal tablet 10 mcg VAGINAL 2XWK #24 tab 12/05/20 aspirin 81 mg tablet,delayed release 81 mg PO QAM lisinopril 5 mg tablet 5 mg PO HS B-complex with vitamin C (Super B Complex-Vitamin C) 1 tab PO QAM cholecalciferol (vitamin D3) 25 mcg (1,000 unit) tablet (Vitamin D3) 25 mcg PO QAM diphenhydramine HCl 25 mg capsule (Benadryl) 50 mg PO HS PRN fluticasone furoate 27.5 mcg/actuation nasal spray,suspension (Flonase Sensimist) 1 spray INTRANASAL DAILY PRN albuterol sulfate 90 mcg/actuation aerosol inhaler (ProAir HFA) 2 puff INHALATION Q4 PRN flaxseed oil 1,000 mg capsule 1,000 mg PO DAILY hydrocortisone 1 % topical ointment 1 applic TOPICAL TID PRN lorazepam 0.5 mg tablet 0.5 mg PO Q8H PRN estradiol 10 mcg vaginal tablet 10 mcg VAGINAL 2XWK gabapentin 100 mg capsule 100 mg PO TID [place] 3 1,000 mg PO QAM acetaminophen 500 mg tablet 1,000 mg PO Q8 PRN cimetidine 400 mg tablet 400 mg PO BID Continue as directed aspirin 81 mg tablet,delayed release 81 mg PO QAM STOP taking 2 weeks before surgery flaxseed oil 1,000 mg capsule 1,000 mg PO DAILY Epa [place] 3 1,000 mg PO QAM STOP taking 24 hours before surgery hydrocortisone 1 % topical ointment 1 applic TOPICAL TID PRN DO NOT take the morning of surgery lisinopril 5 mg tablet 5 mg PO HS B-complex with vitamin C (Super B Complex-Vitamin C) 1 tab PO QAM cholecalciferol (vitamin D3) 25 mcg (1,000 unit) tablet (Vitamin D3) 25 mcg PO QAM estradiol 10 mcg vaginal tablet 10 mcg VAGINAL 2XWK cimetidine 400 mg tablet 400 mg PO BID Take morning of surgery With a small sip of water, OTHERWISE NOTHING TO EAT OR DRINK AFTER MIDNIGHT: fluticasone furoate 27.5 mcg/actuation nasal spray,suspension (Flonase Sensimist) 1 spray INTRANASAL DAILY PRN albuterol sulfate 90 mcg/actuation aerosol inhaler (ProAir HFA) 2 puff INHALATION Q4 PRN(use if needed; please bring with you to hospital day of surgery if possible) lorazepam 0.5 mg tablet 0.5 mg PO Q8H PRN(if needed) gabapentin 100 mg capsule 100 mg PO TID acetaminophen 500 mg tablet 1,000 mg PO Q8 PRN(okay to take up to 4 hours prior to surgery if needed) Take evening before surgery diphenhydramine HCl 25 mg capsule (Benadryl) 50 mg PO HS PRN(if needed) albuterol sulfate 90 mcg/actuation aerosol inhaler (ProAir HFA) 2 puff INHALATION Q4 PRN(if needed) lorazepam 0.5 mg tablet 0.5 mg PO Q8H PRN(if needed) gabapentin 100 mg capsule 100 mg PO TID acetaminophen 500 mg tablet 1,000 mg PO Q8 PRN(if needed) cimetidine 400 mg tablet 400 mg PO BID Other Notes If you have any questions please call us at [phone] or [phone] or [phone] or [phone]
--- NOTE | 2021-08-29 12:14 | Anesthesiology Consultation ---
Date of Service August 29, 2021 Assessment & Plan (1) Encounter for pre-operative examination: - awaiting EKG. - detected murmur: Case discussed with Dr. Martin who advised medical clearance including echocardiogram. Form completed, patient made aware. Awaiting PCP clearance and echocardiogram. Joceline at surgeon's office made aware. - check BSG am DOS. - Outpatient joint pathway eligibility: Pending PCP clearance and echocardiogram . Per surgeon and patient, plan for outpatient joint program. She expresses it is unlikely that her sister would be able to assist in lifting her. She contacted office the day after visit and states had discussed home support with her family and her son who would be able to lift her will be staying with her throughout post-op interval. - COVID screening: Per assessment on 08/29/2021: Travel screen negative, no known COVID-19 positive contacts or current COVID-19 related symptoms in past 2 weeks. Patient vaccinated. Surgeon arranging preop COVID testing, scheduled 09/20/2021. Awaiting results. Chart Review Chart Review: Pending: Refer to Additional Notes / Consult section and Patient seen in Pre Admission Testing Teaching & Discussion Pre-Anesthesia Teaching/Discussion Notes: Instructed NPO after midnight before surgery, except medications with 15 cc of water. Medication instructions provided according to the PAT guidelines. History Surgery Operation Date: 09/24/21 12:00 Proposed Procedures p Left Anterior Total Hip Arthroplasty - Cecil Denise DO Height/Weight Height: 5 ft Weight: 87.8 kg Allergies Allergy/AdvReac Type Severity Reaction Status Date / Time Penicillins Allergy Intermediate HIVES Verified 08/24/21 07:37 pravastatin Allergy Mild LEG PAIN Verified 08/24/21 07:37 simvastatin Allergy Mild LEG PAIN Verified 08/24/21 07:37 atorvastatin AdvReac Mild LEG PAIN Verified 08/24/21 07:37 capsaicin AdvReac Mild GI SYMPTOMS Verified 08/24/21 07:37 diclofenac AdvReac Mild GI SYMPTOMS Verified 08/24/21 07:37 Diclopak AdvReac Mild GI SYMPTOMS Verified 03/04/13 11:16 Medications Home Medications Medication Instructions Recorded Confirmed Last Taken aspirin 81 mg tablet,delayed 81 mg PO QAM tab 06/16/19 08/24/21 02/13/20 08:00 release lisinopril 5 mg tablet 5 mg PO HS 01/0308/24/21 02/16/20 22:00 cholecalciferol (vitamin D3) 25 25 mcg PO QAM 11/29/19 08/24/21 02/16/20 08:00 mcg (1,000 unit) tablet (Vitamin D3) diphenhydramine HCl 25 mg capsule 50 mg PO HS PRN 11/29/19 08/24/21 02/16/20 22:00 (Benadryl) fluticasone furoate 27.5 1 spray INTRANASAL DAILY PRN 11/29/19 08/24/21 02/16/20 22:00 mcg/actuation nasal spray,suspension (Flonase Sensimist) albuterol sulfate 90 mcg/actuation 2 puff INHALATION Q4 PRN 08/18/20 08/24/21 Unknown aerosol inhaler (ProAir HFA) flaxseed oil 1,000 mg capsule 1,000 mg PO DAILY 08/18/20 08/24/21 Unknown hydrocortisone 1 % topical ointment 1 applic TOPICAL TID PRN 08/18/20 08/24/21 Unknown lorazepam 0.5 mg tablet 0.5 mg PO Q8H PRN #15 tab 08/19/20 08/24/21 Unknown estradiol 10 mcg vaginal tablet 10 mcg VAGINAL 2XWK #24 tab 12/05/20 08/24/21 Unknown gabapentin 100 mg capsule 100 mg PO TID cap 06/19/21 08/24/21 Unknown Epa [place] 3 1,000 mg PO QAM 08/24/21 08/24/21 Unknown acetaminophen 500 mg tablet 1,000 mg PO Q8 PRN 08/24/21 08/24/21 Unknown cimetidine 400 mg tablet 400 mg PO BID 08/24/21 08/24/21 Unknown naproxen sodium PRN 08/29/21 Unknown vitamin B complex PO DAILY 08/29/21 Unknown Additional Notes: Patient added naproxen sodium to medication list, entered in system. She verbalized understanding will need to discuss medication instructions with surgeon. She states was already advised by surgeon's office of need to stop naproxen sodium 7 days prior to surgery. Past Medical History Medical History (Updated 08/29/21 @ 12:13 by Rula Navarro PA-C) Anxiety controlled, stable per pt Asthma last rescue inhaler use > 1 month ago Environmental allergies GERD (gastroesophageal reflux disease) controlled, stable per pt Hyperlipidemia Hypertension controlled, stable per pt Osteoarthritis Prediabetes Patient denies h/o stroke, seizures, heart attack, heart failure, blood clots or blood transfusions. Exercise / Class Metabolic Activity II 4-5 Yardwork/Stairs/Walk up hill (denies CP or SOB with 1 FOS) Past Family History Family History Sister Family history of diabetes mellitus Other No family history of adverse response to anesthesia Past Surgical History Surgical History (Updated 08/29/21 @ 16:01 by Rula Navarro PA-C) H/O rectocele repair H/O shoulder surgery left TSA reverse with biceps tenodesis 02/17/2020: Grade 2 view, MAC#3, ETT#7.5 + PNB. No issues per anesthesia postop progress note. History of bilateral tubal ligation History of carpal tunnel release RT History of section X 1 History of colonoscopy History of dilatation and curettage History of esophagogastroduodenoscopy (EGD) History of tonsillectomy and adenoidectomy History of tooth extraction Macular hole LEFT EYE INJECTION Nausea and vomiting after administration of anesthetic agent Past Anesthesia History No Hx of Anesthesia Complications and No Family Hx of Anesthesia Complications History of PONV No Hx of Motion Sickness and History of PONV (with rectocele repair) Social History Smoking Status: Never smoker Do You Dip or Chew Tobacco: No Hx Alcohol Use: Yes Alcohol type: wine and hard liquor alcohol intake frequency: a few times a week substance use type: does not use Review of Systems Patient denies chest pain, shortness of breath, dyspnea on exertion, snoring, witnessed apneas, fever, chills, cough, wheezing, or palpitations. Physical Exam Vital Signs Vitals BP 130/82 P 76 TEMP 98.6 SP02 94% on RA RESP 16 Physical Full cervical extension range of motion without pain Full TMJ range of motion TMD 3.5 finger breaths Mallampati Score 2 Dentition: intact, missing left lower back, multiple crowns right and lower bottom side; denies chipped or loose teeth, implants or bridges Lungs: normal respiratory effort. Clear throughout to auscultation, no adventitious breath sounds Cardiac: regular rate and rhythm, 2/6 systolic murmur, no gallops or rubs Carotid arteries: negative bruit bilat Extremities: no distal extremity edema Lab Results Anesthesia Preop Results Results Anesthesia Widget: WBC 8.58 K/uL (4.8-10.8) 08/29/21 Hgb 13.1 g/dL (12.0-16.0) 08/29/21 Hct 39.9 % (37-47) 08/29/21 Plt 351 K/uL (130-400) 08/29/21 Na 142 mmol/L (136-145) 08/29/21 K 4.6 mmol/L (3.5-5.1) 08/29/21 Cl 110 mmol/L (98-107) H 08/29/21 CO2 25 mmol/L (21-32) 08/29/21 BUN 23 mg/dl (7-18) H 08/29/21 Creat 0.94 mg/dl (0.6-1.2) 08/29/21 Glucose Level 106 mg/dl (70-99) H 08/29/21 PT 9.7 Seconds (9.0-12.0) 08/29/21 PTT 26.0 Seconds (21.0-31.0) 08/29/21 INR 1.0 (0.9-1.1) 08/29/21 HA1c 5.4 % (4.5-5.6) 08/29/21 Blood Type O Positive 08/29/21 Antibody Screen NEGATIVE 08/29/21 Testing Electrocardiogram Date: 08/29/21 Chest X-Ray Date: 08/29/21 FINDINGS: The cardiomediastinal and hilar silhouettes are within normal limits. Eventration of the right hemidiaphragm. There is no pneumothorax, pleural effusion, airspace consolidation or overt pulmonary edema. Degenerative changes of the spine and right shoulder. Left shoulder reverse total joint arthroplasty. IMPRESSION: No acute process. Echocardiogram Date: 08/19/20 EF 60-65% mild cLVH normal left ventricular systolic function and wall motion sclerotic aortic valve without significant aortic valvular stenosis
--- NOTE | 2021-09-20 15:38 | History & Physical Report ---
Date of Service September 20, 2021 Assessment & Plan (1) Osteoarthritis of left hip: We will proceed with a left total hip arthroplasty. Postoperatively she will be in our outpatient joint protocol. She will be given oral pain medications and discharged home. She plans to have [facility] see her the following day. History of Present Illness Chief Complaint: Primary osteoarthritis of the left hip. Primary Care Provider: Chelsey Camacho PA-C Iwona is a pleasant 76-year-old female who has been dealing with chronic worsening left hip and groin pain. X-rays and clinical examination have been diagnostic for advanced arthritis of the left hip. After failing conservative treatment, she elected to proceed with a left anterior total hip arthroplasty. Allergies Allergy/AdvReac Type Severity Reaction Status Date / Time Penicillins Allergy Intermediate HIVES Verified 08/24/21 07:37 pravastatin Allergy Mild LEG PAIN Verified 08/24/21 07:37 simvastatin Allergy Mild LEG PAIN Verified 08/24/21 07:37 atorvastatin AdvReac Mild LEG PAIN Verified 08/24/21 07:37 capsaicin AdvReac Mild GI SYMPTOMS Verified 08/24/21 07:37 diclofenac AdvReac Mild GI SYMPTOMS Verified 08/24/21 07:37 Diclopak AdvReac Mild GI SYMPTOMS Verified 03/04/13 11:16 Home Medications Medication Instructions Recorded Confirmed Type aspirin 81 mg tablet,delayed 81 mg PO QAM tab 06/16/19 08/24/21 History release lisinopril 5 mg tablet 5 mg PO HS 09/10/19 08/24/21 History cholecalciferol (vitamin D3) 25 25 mcg PO QAM 11/29/19 08/24/21 History mcg (1,000 unit) tablet (Vitamin D3) diphenhydramine HCl 25 mg capsule 50 mg PO HS PRN 11/29/19 08/24/21 History (Benadryl) fluticasone furoate 27.5 1 spray INTRANASAL DAILY PRN 11/29/19 08/24/21 History mcg/actuation nasal spray,suspension (Flonase Sensimist) albuterol sulfate 90 mcg/actuation 2 puff INHALATION Q4 PRN 08/18/20 08/24/21 History aerosol inhaler (ProAir HFA) flaxseed oil 1,000 mg capsule 1,000 mg PO DAILY 08/18/20 08/24/21 History hydrocortisone 1 % topical ointment 1 applic TOPICAL TID PRN 08/18/20 08/24/21 History lorazepam 0.5 mg tablet 0.5 mg PO Q8H PRN #15 tab 08/19/20 08/24/21 Rx estradiol 10 mcg vaginal tablet 10 mcg VAGINAL 2XWK #24 tab 12/05/20 08/24/21 Rx gabapentin 100 mg capsule 100 mg PO TID cap 06/19/21 08/24/21 History Epa [place] 3 1,000 mg PO QAM 08/24/21 08/24/21 History acetaminophen 500 mg tablet 1,000 mg PO Q8 PRN 08/24/21 08/24/21 History cimetidine 400 mg tablet 400 mg PO BID 08/24/21 08/24/21 History naproxen sodium PRN 08/29/21 History vitamin B complex PO DAILY 08/29/21 History Past Med/Surg History Medical History Anxiety controlled, stable per pt Asthma last rescue inhaler use > 1 month ago Environmental allergies GERD (gastroesophageal reflux disease) controlled, stable per pt Hyperlipidemia Hypertension controlled, stable per pt Osteoarthritis Prediabetes Surgical History H/O rectocele repair H/O shoulder surgery left TSA reverse with biceps tenodesis 02/17/2020: Grade 2 view, MAC#3, ETT#7.5 + PNB. No issues per anesthesia postop progress note. History of bilateral tubal ligation History of carpal tunnel release RT History of section X 1 History of colonoscopy History of dilatation and curettage History of esophagogastroduodenoscopy (EGD) History of tonsillectomy and adenoidectomy History of tooth extraction Macular hole LEFT EYE INJECTION Nausea and vomiting after administration of anesthetic agent Family History Sister Family history of diabetes mellitus Other No family history of adverse response to anesthesia Social History Smoking Status: Never smoker Second Hand Exposure: Yes ( A CHILD); Hx Alcohol Use: Yes Alcohol type: wine and hard liquor Preferred Language: Yakut Communication Ability: Effective Applications Consultant Required: No Beliefs That Will Affect Care: None Current Living Situation: Alone Feels Safe at Home: Yes Assistive Devices: Contacts Review of Systems All systems reviewed & are unremarkable except as noted in HPI & below. Physical Exam On physical examination of the left hip, she has decreased range of motion. She has pain with forced internal and external rotation. Constitutional WD/WN, vitals as above Eyes PERRL, conjunctivae normal, anicteric sclerae ENMT external ear and nose normal, oropharynx normal Neck trachea midline, no thyromegaly Respiratory normal respiratory effort Cardiovascular RRR, no murmur, no edema Gastrointestinal (Abdomen) normal bowel sounds, soft, nontender, no hepatosplenomegaly Psychiatric A+Ox3, euthymic affect Results & Data Results & Data Laboratory Results . Diagnostic Findings X-rays obtained of the left hip do show advanced osteoarthritis with joint space narrowing, osteophyte formation, and [id number] reticulation. PG Care Time/CCT Total # of Minutes Spent Total Time Spent with Patient: Total time spent is greater than 50% in coordination of care (as documented) at patient's floor/unit and/or counseling patient: Coding Level of Care Code None Diagnoses Osteoarthritis of left hip M16.12
[2021-09-24] MEDS ORDERED: TRANEXAMIC ACID 1,000 MG **IV Intra-op IV SCH (06:00)
[2021-09-24] MEDS ORDERED: LR 500ML BOLUS, THEN 15ML/HR IV SCH (06:00)
[2021-09-24] MEDS ORDERED: ROPIVACAINE 0.5% HCL/PF 150 MG, BUPIVACAINE 0.75% MPF 20 ML, EPINEPHrine 30MG/30ML (OR ... INSTIL SCH (06:00)
[2021-09-24] MEDS ORDERED: LR 60ML/HR IV SCH (06:00)
[2021-09-24] MEDS ORDERED: FAMOTIDINE 20 MG TAB PO SCH (06:00)
[2021-09-24] MEDS ORDERED: GABAPENTIN 300 MG CAP PO SCH (06:00)
[2021-09-24] MEDS ORDERED: ceFAZolin 2000MG 2,000 MG/15 ML SYR IV SCH (06:00)
[2021-09-24] MEDS ORDERED: ACETAMINOPHEN 500 MG TAB PO SCH (06:00)
[2021-09-24] MEDS ORDERED: TRANEXAMIC ACID 1,000 MG **IV Pre-op IV SCH (06:00)
[2021-09-24] MEDS ORDERED: dexAMETHasone 4 MG TAB PO SCH (06:00)
[2021-09-24] MEDS ORDERED: MEPIVACAINE HCL 1.5% 30 ML VIAL ONE (06:28)
[2021-09-24] MEDS ORDERED: BUPIVACAINE 0.5 % 5 MG/1 ML PF 10ML VIAL ONE (06:28)
[2021-09-24] MEDS ORDERED: fentaNYL citrate 100 MCG/2 ML VIAL ONE (06:48)
[2021-09-24] MEDS ORDERED: PROPOFOL IV EMULSION 10 MG/ML 20 ML VIAL IV ONE ×2 (06:48→07:52)
[2021-09-24] MEDS ORDERED: MIDAZOLAM HCL 1 MG/ML 2ML VIAL ONE (06:48)
[2021-09-24] MEDS ORDERED: LIDOCAINE 2% 2 ML VIAL/AMP(20MG/ML) INFIL ONE (06:48)
[2021-09-24] MEDS ORDERED: ONDANSETRON INJ 2 MG/ML 2 ML VIAL ONE (06:49)
[2021-09-24] MEDS ORDERED: ceFAZolin 2,000 MG/15 ML IV PUSH IV ONE (06:57)
--- NOTE | 2021-09-24 06:59 | History & Physical Bridge Note ---
Date of Service September 24, 2021 History & Physical Bridge Note I have examined the patient, reviewed the History & Physical and in the interval since the performance of the History & Physical I have noted the following changes of clinical significance: no changes noted
[2021-09-24] MEDS ORDERED: Nursing to Pharmacy Communication SCH (07:00)
[2021-09-24] MEDS ORDERED: ORTHO JOINT ANESTHETIC ONE (07:07)
[2021-09-24] MEDS ORDERED: ePHEDrine sulfate 50 MG/ML SYR ONE (07:52)
[2021-09-24] MEDS ORDERED: PHENYLEPHRINE 100MCG/ML 5ML SYR ONE (07:52)
[2021-09-24] MEDS ORDERED: PHENYLEPHRINE 100MCG/ML 5ML SYR IV PRN (08:33)
[2021-09-24] MEDS ORDERED: ePHEDrine sulfate 50 MG/ML AMP IV PRN (08:33)
[2021-09-24] MEDS ORDERED: ONDANSETRON INJ 2 MG/ML 2 ML VIAL IV PRN ×2 (08:33→17:48)
[2021-09-24] MEDS ORDERED: LABETALOL HCL IV 5 MG/ML 20ML IV PRN (08:33)
[2021-09-24] MEDS ORDERED: ATROPINE SULFATE 0.1 MG/ML 10ML SYR IV PRN (08:33)
[2021-09-24] MEDS ORDERED: MEPERIDINE HCL 25 MG/ML CARP/VIAL IV PRN (08:33)
[2021-09-24] MEDS ORDERED: HYDROmorphone INJ 1 MG/ML SYRINGE IV PRN (08:33)
--- NOTE | 2021-09-24 08:55 | Operative Report ---
PG Post Operative Report Pre & Post Diagnosis Operation Date: 09/24/21 07:30 Pre-Op Diagnosis: Degenerative Joint Disease Left Hip Post-Op Diagnosis: Degenerative Joint Disease Left Hip I identified the patient and participated in the time-out.: Yes Procedure Operation Date: 09/24/21 07:30 Actual Procedures p Left Anterior Total Hip Arthroplasty, Uncemented(Left) - Cecil Denise DO Surgeon Cecil Denise, Document Photographer Cecil Mg PAC Estimated Blood Loss 150 Findings Consistent with Post-Op Diagnosis Specimens Left femoral head Complications none Disposition Disposition: Recovery Room Indications Iwona is a pleasant 76-year-old female who is been dealing with chronic worsening left hip and groin pain. X-rays and clinical examination have been diagnostic for advanced osteoarthritis of the left hip. After failing conservative treatment, she elected proceed with a left anterior total hip arthroplasty. Description of Procedure Implants used I used a ZimmerBiomet total hip arthroplasty system with a size 3 standard offset Avenir Complete stem, a 50 mm G7 cup with a 25mm screw, an E1 polyethylene liner, a 36 mm ceramic head with a 0 neck. Iwona arrived at the hospital for the above procedure. She was seen in the preoperative holding area and the operative extremity was identified and signed. She was given a spinal anesthetic, a preoperative antibiotic, and TXA. She was then taken back to the operating room and laid on the table in the supine position. She was given basic sedation. The operative leg was secured to a Puristst leg positioner. The hip was then prepped and draped in sterile fashion. A timeout was done and the patient and the operative extremity was properly identified. An anterior approach was used. Dissection was taken down through the fascia and the tensor muscle belly was retracted laterally and the rectus was retracted medially. The circumflex vessels were identified and ligated. The capsule was then incised and tagged for later repair. The femoral neck was then cut and the femoral head was removed. The acetabulum was exposed. Time was spent doing a complete circumferential labral release. Sequential reaming of the acetabulum up to a size 49 reamer was done. Final reamings were done under fluoroscopy to ensure appropriate version. A Biomet 50 mm G7 cup was then impacted into place. A single 25 mm screw was placed. The E1 polyethylene liner was then snapped into place. Surrounding soft tissues were then injected with 100 cc of an orthopedic pain control cocktail. The proximal femur was then exposed. Sequential broaching up to a size 3 broach was done. Off that broach a size 36 head with a 0 neck was trialed. The hip was reduced and fluoroscopic images showed anatomic alignment of the implants in acceptable length. The broach was removed. The final size 3 standard offset Avenir Complete stem was then impacted into place. A ceramic 36mm head with a 0 neck was then impacted onto the stem and the hip was reduced. Final fluoroscopic images showed anatomic alignment of the hip. The capsule was then closed with #1 Vicryl suture. A dilute betadyne lavage was then done for 3 minutes. The joint was then irrigated with normal saline solution. The fascia was closed with #1 PDS suture. Skin was closed with 2-0 Vicryl, reynold, and a Silverlon dressing. She was then transferred to a hospital bed and taken to the post anesthesia care unit in stable condition. She tolerated the procedure well. Cecil Mg PA-C, was present for the entire procedure. He was critical for patient positioning, prepping, draping, retraction exposure, wound closure and application of sterile dressing. I attest to the content of the Intraoperative Record and any orders documented therein. Any exceptions are noted below.
[2021-09-24] MEDS ORDERED: oxyCODONE/ACETAMINOPHEN 5mg/325mg TAB PO PRN (08:57)
--- NOTE | 2021-09-24 09:18 | Fluoroscopy Report ---
FL hip LT 1V CLINICAL HISTORY: Left anterior total hip arthroplasty. COMPARISON STUDY: None. FLUOROSCOPY TIME: 16 seconds. FINDINGS: 2 fluoroscopic spot images of the left hip demonstrate a left total hip arthroplasty. The h ardware is intact. No fracture or dislocation. IMPRESSION: Fluoroscopic assistance provided for left total arthroplasty. ACT 112: Negative or not required by law. Electronically signed by: Logan Woodson M.D. 09/24/2021 9:16 AM
[2021-09-24] MEDS: fentaNYL citrate 100 MCG/2 ML VIAL IV PRN ×2 (09:25→09:36)
--- NOTE | 2021-09-24 09:31 | XRay Report ---
XR hip 1V LT w pelvis CLINICAL HISTORY: IN PACU - A/P PELVIS and LATERAL HIP . Status post left hip replacement COMPARISON STUDY: No previous studies for comparison. TECHNIQUE: 2 left hip views FINDINGS: The patient is status post total hip replacement with noncemented components. The prostheti c components are in anatomic alignment with no acute abnormality identified. Skin reynold are present from the recent procedure. IMPRESSION: Status post left total hip replacement. ACT 112: Negative or not required by law. Electronically signed by: Osorio Flores M.D. 09/24/2021 9:30 AM
--- NOTE | 2021-09-24 09:57 | Anesthesiology Progress Note ---
Date of Service September 24, 2021 Anesthesia Post Procedure Vital Signs Vital Signs: Temp Pulse Pulse Resp BP Pulse Ox 09/24/21 09:45 36.6 C 96 H 18 101/59 L 97 09/24/21 09:35 96 H 20 104/65 95 09/24/21 09:25 97 H 17 94/60 L 95 09/24/21 09:15 37.1 C 97 H 12 149/84 H 94 09/24/21 05:34 36.7 C 103 H 20 145/84 H 95 Pain Intensity Left Hip: Pain Intensity: 2 Head: Pain Intensity: 1 Transfer of Care Handoff Completed per policy Notes Mental Status: alert / awake / arousable Patient Amnestic to Procedure: Yes Nausea / Vomiting: adequately controlled Pain: adequately controlled Airway Patency, RR, SpO2: stable & adequate BP & HR: stable & adequate Hydration State: stable & adequate Neuraxial Anesthesia: was administered and sensory block is resolving Anesthetic Complications: no major complications apparent and Pt Satisfied with anesthetic care
[2021-09-24] MEDS ORDERED: METOPROLOL TARTRATE 1 MG/ML VIAL IV STA (15:39)
[2021-09-24] MEDS ORDERED: bisacodyL 10 MG SUPP PR PRN (17:48)
[2021-09-24] MEDS ORDERED: TRIAMCINOLONE ACET 40 MG/ML VIAL IA SCH (17:48)
[2021-09-24] MEDS ORDERED: MAGNESIUM HYDROXIDE SUSP 30 ML UDC PO PRN (17:48)
[2021-09-24] MEDS ORDERED: LORazepam 0.5 MG TAB PO PRN (17:48)
[2021-09-24] MEDS ORDERED: oxyCODONE HCL IR 5 MG TAB (IMMEDIATE RELEASE) PO PRN (17:48)
[2021-09-24] MEDS ORDERED: NALOXONE HCL 0.4 MG/1 ML VIAL/CARP IV PRN (17:48)
[2021-09-24] MEDS ORDERED: diphenhydrAMINE Capsule 25 MG CAP PO PRN (17:48)
[2021-09-24] MEDS ORDERED: METOCLOPRAMIDE HCL INJ 5 MG/ML 2 ML VIAL IV PRN (17:48)
[2021-09-24] MEDS ORDERED: SODIUM CHLORIDE 0.9% 1000ML 1,000 ML IV SCH (17:48)
[2021-09-24] MEDS ORDERED: HYDROmorphone INJ 0.5 MG/0.5 ML SYR IV PRN (17:48)
[2021-09-24] MEDS ORDERED: ACETAMINOPHEN 500 MG TAB PO PRN (18:31)
[2021-09-24] MEDS ORDERED: ALBUTEROL HFA 8 GM INHALER INH PRN (18:37)
[2021-09-24] MEDS ORDERED: FLUTICASONE PROPIONATE NA SPR 16 GM BTL PRN (18:41)
[2021-09-24] MEDS: ASPIRIN 81 MG ECTAB PO SCH (19:45)
[2021-09-24] MEDS: DOCUSATE SODIUM 100 MG CAP PO SCH (19:45)
[2021-09-24] MEDS: FAMOTIDINE 20 MG TAB PO SCH (19:45)
[2021-09-24] MEDS: GABAPENTIN 100 MG CAP PO SCH (19:46)
[2021-09-24] MEDS ORDERED: SENNA 8.6 MG TAB PO SCH (21:00)
[2021-09-24] MEDS ORDERED: lisinopril 5 MG TAB PO SCH (21:00)
[2021-09-24] MEDS: ceFAZolin 2000MG 2,000 MG/15 ML SYR IV SCH (21:15)
[2021-09-25] MEDS: ceFAZolin 2000MG 2,000 MG/15 ML SYR IV SCH (04:50)
--- NOTE | 2021-09-25 06:51 | Orthopedic Progress Note ---
Date of Service September 25, 2021 Assessment & Plan (1) Status post left hip replacement: Overall she is doing very well. She is not having much pain in the left hip. She has regained motion of her left ankle. She will be seen by physical therapy today for ambulation and range of motion exercises. She is on aspirin twice a day for DVT prophylaxis. She can then be discharged to home. She will follow-up with orthopedics in 2 weeks. Lazarus Bustillo was seen and examined at bedside this morning. Overall she is doing very well. She is not having much pain in her left hip. She has regained motion of her left ankle. She has no complaints. Review of Systems All systems reviewed & are unremarkable except as noted in HPI & below. Physical Exam On physical examination of her left hip, the dressing is clean and dry. She is active dorsiflexion plantarflexion of the left ankle. She little bit of numbness laterally. Results & Data Results & Data Laboratory Results . Diagnostic Findings Postoperative x-rays of the left hip show the prosthesis to be in anatomic alignment without any evidence of fracture, dislocation, or loosening. PG Care Time/CCT Total # of Minutes Spent Total Time Spent with Patient: Total time spent is greater than 50% in coordination of care (as documented) at patient's floor/unit and/or counseling patient: Coding Level of Care Code 59591 Post Operative Follow-Up Diagnoses Status post left hip replacement Z96.642
--- NOTE | 2021-09-25 06:53 | Discharge Summary ---
Date of Service September 25, 2021 Admission HPI (Per Admitting) Iwona is a pleasant 76-year-old female who has been dealing with chronic worsening left hip and groin pain. X-rays and clinical examination have been diagnostic for advanced arthritis of the left hip. After failing conservative treatment, she elected to proceed with a left anterior total hip arthroplasty. Admission Exam (Per Admitting) On physical examination of the left hip, she has decreased range of motion. She has pain with forced internal and external rotation. Principal Diagnosis Same as "Discharge Diagnosis" noted below under Discharge Instructions. Discharge Exam On physical examination of her left hip, the dressing is clean and dry. She is active dorsiflexion plantarflexion of the left ankle. She little bit of numbness laterally. Discharge Data Procedures Performed Operation Date: 09/24/21 07:30 Actual Procedures p Left Anterior Total Hip Arthroplasty, Uncemented(Left) - Cecil Denise DO Ordered Studies 09/24/21 07:30 FL hip LT 1V Routine Hospital Course (1) Status post left hip replacement: On September 24, [address] [facility] and underwent a left anterior hip replacement without complication. She had a spinal anesthetic. She was part of our outpatient joint protocol. Unfortunately for about 6 hours after the procedure she was unable to dorsiflex her ankle. Due to the inability to dorsiflex therapy was not able to get her up and ambulate her. She was then admitted to the hospital overnight. On postop day #1 she had full motor function of her left ankle. She was seen by physical therapy and able to do ambulation and range of motion exercises. She was then discharged home. She will follow-up with orthopedics in 2 weeks. PG Care Time/CCT Total # of Minutes Spent Total Time Spent with Patient: Total time spent is greater than 50% in coordination of care (as documented) at patient's floor/unit and/or counseling patient: Discharge Plan Discharge Items Patient Disposition: Home - Home Health Services Reason For Visit: POST SURGICAL CARE Discharge Diagnosis: Left hip replacement Activity: As commented below Non-emergency contact: Surgeon Call non-emergency contact if: your wound has increased redness and your wound has increased drainage Follow-up/Referrals: Chelsey Camacho PA-C [Primary Care Provider] - Cecil Denise DO [Physician] - [facility] [Non-Staff] - (PER SURGEON'S OFFICE) Diet: Regular Addtl Attending Provider Instructions: Activity and Therapy Recommendations: * If you are using [facility] then therapy will be provided at your home until they feel you have accomplished all of your goals. * If you are using [facility] then Physical Therapy will be provided until they feel you are ready to start Outpatient Physical Therapy. * If you are not using home therapy then Outpatient Physical Therapy should start about 3-5 days from your day of surgery. Therapy will last about 6-10 weeks * You were shown a series of exercises in the hospital. Do these exercises three times each day including the exercises you were shown in physical therapy. * Get up and walk several times each day.~ For the first four weeks, try not to stand or walk for more than one hour at a time. If you do stand or walk for more than one hour, you will not hurt anything, but your leg will likely swell.~~ * As you feel comfortable, you may change from the walker or crutches to a cane and~then to independent walking. Medications: * Narcotic You will likely be sent home from the hospital with a prescription for the narcotic pain medication that worked best throughout your stay. * Aspirin Most patients will be required to take Aspirin 81mg twice a day for 6 weeks after surgery. This is obtained [id number] and a prescription is not necessary. * Other medications may be prescribed for specific circumstances. If you have any questions, please call the office at . * Resume previous home medications unless otherwise instructed TEDs/Elastic Stockings: The white elastic stockings help limit swelling and prevent blood clots from forming in your legs. The more you wear them, the more they work. Wear them for six weeks. Dressing Care: Leave the Silverlon dressing in place for 7 days. After 7 days you may remove the dressing. If the incision is not draining then you may leave the reynold open to air. If there is a little bit of drainage or if the reynold are getting stuck on your clothing then cover the incision with a dry dressing. The reynodl will be removed at your 2 week follow-up appointment. Showering: You may shower with the Silverlon dressing in place. Do not let the shower spray hit the dressing directly. Pat the Silverlon dressing dry. If the dressing becomes wet underneath, then simply remove the dressing. Keep the incision dry until you are 7 days out from the day of surgery. After 7 days you may remove the Silverlon dressing and shower with the reynold exposed. Let soapy water run over the reynold and pat them dry. Do not scrub or soak the incision. Things To Watch For: * Drainage from the incision site that occurs more than one week after your surgery. * Increased redness at the incision site. * Fever above 102 degrees Fahrenheit. * Unusual chest pain or shortness of breath. * Call [facility] at with any of the above pro blems Follow-Up Visit: Follow-up with Dr. Denise's PA (Cecil Mg) 2-3 weeks after your day of surgery. He will remove your reynold and answer any questions. If you have any additional questions or concerns, Dr Denise is usually in the office at the same time and will be available An appointment was probably scheduled when you signed-up for surgery in the office. If you have any questions call Office Instructions: More detailed instructions as well as Frequently Asked Questions were provided in a folder by our office when you signed-up for surgery. Please review these instructions when you get home. If you have any further questions or concerns, please feel free to call the office at [phone] Pending Studies at Discharge: No Stand-Alone Forms: My [facility] Medications and DC Order Prescriptions: Continued celecoxib [Celebrex] 200 mg capsule 200 mg PO BID Qty: 28 RF: 0 ondansetron HCl 4 mg tablet 4 mg PO Q8H PRN (Reason: nausea and vomiting) Qty: 10 RF: 0 oxycodone-acetaminophen [Percocet] 5-325 mg tablet 1 tab PO Q6H PRN (Reason: pain) Qty: 30 RF: 0 Senokot Extra Strength 17.2 mg tablet 17.2 mg PO DAILY PRN (Reason: constipation) Qty: 10 RF: 0 estradiol 10 mcg tablet 10 mcg VAGINAL 2XWK Qty: 24 RF: 3 triamcinolone acetonide [Kenalog] 40 mg/mL suspension 80 mg intra-articular ONCE Qty: 2 RF: 0 lisinopril 5 mg tablet 5 mg PO HS RF: 0 gabapentin 100 mg capsule 100 mg PO TID RF: 0 diphenhydramine HCl [Benadryl] 25 mg Capsule 50 mg PO HS PRN (Reason: Sleep) RF: 0 cholecalciferol (vitamin D3) [Vitamin D3] 25 mcg (1,000 unit) Tablet 25 mcg PO QAM RF: 0 Flonase Sensimist 27.5 mcg/actuation [place],Suspension 1 spray INTRANASAL DAILY PRN (Reason: Nasal Congestion) RF: 0 hydrocortisone 1 % Ointment 1 applic TOPICAL TID PRN (Reason: IRRITATION) RF: 0 flaxseed oil 1,000 mg Capsule 1,000 mg PO DAILY RF: 0 albuterol sulfate [ProAir HFA] 90 mcg/actuation Hfa Aerosol Inhaler 2 puff INHALATION Q4 PRN (Reason: Shortness Of Breath Or Wheezing) RF: 0 lorazepam 0.5 mg tablet 0.5 mg PO Q8H PRN (Reason: anxiety or nausea) Qty: 15 RF: 0 cimetidine 400 mg Tablet 400 mg PO BID RF: 0 Epa [place] 3 1,000 mg PO QAM RF: 0 acetaminophen 500 mg tablet 1,000 mg PO Q8 PRN (Reason: Pain) RF: 0 vitamin B complex PO DAILY RF: 0 naproxen sodium PRN (Reason: Pain) RF: 0 Changed aspirin 81 mg tablet,delayed release (DR/EC) 81 mg PO BID Qty: 0 RF: 0 Discharge Orders: Discharge Order (Routine); Ordered 09/25/21 Ordered By: Cecil Blanchard/Other Patient Handouts: DVT Post Op Prevention Admission Data Admit Date/Time: 09/24/21 16:24 Attending Provider: Cecil Denise Admit Provider: Cecil Denise Primary Care Provider: Chelsey Camacho Other Interventions: Discharge Summary Assessment (RN) Last Done: 09/24/21 17:20
[2021-09-25] MEDS ORDERED: dexAMETHasone 4 MG TAB PO SCH (08:00)
[2021-09-25 08:16] LABS: Appearance Urine Clear (Clear); Bilirubin Urine Negative (Negative); Blood Urine Negative (Negative); Color Urine Yellow; Glucose Urine UA Negative (Negative); Ketones Urine Negative (Negative); Leukocyte Esterase Urine Negative (Negative); Nitrite Urine Negative (Negative); Protein Urine Negative (Negative); Specific Gravity Urine 1.009 (1.000-1.030); Urobilinogen Urine Negative (Negative); pH Urine 6.5 (4.5-7.5)
[2021-09-25] MEDS: GABAPENTIN 100 MG CAP PO SCH (08:48)
[2021-09-25] MEDS: DOCUSATE SODIUM 100 MG CAP PO SCH (08:48)
[2021-09-25] MEDS: FAMOTIDINE 20 MG TAB PO SCH (08:48)
[2021-09-25] MEDS: ASPIRIN 81 MG ECTAB PO SCH (08:49)
[2021-09-25] MEDS ORDERED: CHOLECALCIFEROL 1,000 UNITS 25 MCG TAB PO SCH (09:00)
[2021-09-25] MEDS ORDERED: [UNRECOGNIZED DRUG - OTHER] PO SCH (09:00)
[2021-09-25] MEDS ORDERED: MULTIVITAMIN TAB PO SCH (09:00)
[2021-09-25] MEDS ORDERED: OMEGA-3 (PURIFIED FISH OIL) 1 GM CAP PO SCH (09:00)
== END 2021-09-25 14:49 | disposition home health service (06) ==
LOC: ASU 05:11 → 3N 05:11